=== PATIENT | male | born 1960 | race Two or more races ===

== ENCOUNTER 2020-02-28 09:00 | Outpatient (REF) | payer BC, SELFPAY | END 2020-02-28 09:01 | disposition home or self-care (01) | LOC: HO.LAB 09:00 | PROVIDERS: PCP Internal Medicine; Visit Provider Internal Medicine | DX: Z20.828 Contact with and (suspected) exposure to other viral communicable diseases (principal) | CPT/HCPCS: 87635 ==

== ENCOUNTER → 2020-03-06 10:07 | Outpatient (BNVA) | payer BC, SELFPAY | PROVIDERS: PCP Internal Medicine; Referring Provider Internal Medicine; Visit Provider Surgery | DX: Z76.89 Persons encountering health services in other specified circumstances (principal) ==

== ENCOUNTER 2020-03-15 11:08 | Outpatient (REF) | payer BC, SELFPAY | END 2020-03-15 11:09 | disposition home or self-care (01) | LOC: HO.LAB 11:08 | PROVIDERS: Visit Provider Internal Medicine | DX: Z20.828 Contact with and (suspected) exposure to other viral communicable diseases (principal) | CPT/HCPCS: U0003 ==

== ENCOUNTER 2020-03-15 11:48 | Day surgery (SDC) | payer BC, SELFPAY ==
--- NOTE | 2020-03-14 09:16 | P.CONAN_ITS ---
HPI - Anesthesia Eval Consult details Narrative: 59yo M for mitchell antonio FORMERLY [facility], [facility] Past Medical History Medical History Cholelithiasis GERD (gastroesophageal reflux disease) Hiatal hernia Hypercholesterolemia Impaired glucose tolerance Pulmonary nodule Vitamin B12 deficiency Family History Family History Father Diabetes Acute CVA (cerebrovascular accident) Stroke Mother Diabetes Hypertension Maternal Grandfather Lung cancer Maternal Grandmother Lung cancer Brother Diabetes Surgical History Surgical History No pertinent past surgical history Social History Social History Alcohol intake: never Smoking Status: Never smoker Meds Allergies Allergy/AdvReac Type Severity Reaction Status Date / Time No Known Allergies Allergy Verified 03/06/20 10:15 Home Medications Medication Instructions Recorded Confirmed Type folic acid 1 mg tablet 1 mg PO DAILY 03/04/20 History sildenafil 50 mg tablet 50 mg PO DAILY PRN 03/04/20 History Exam Exam Date and Time: March 14, 2020 0916 Assessment and Plan Assessment Anesthesia Assessment: Chart Reviewed
[2020-03-14 11:27] VITALS: BMI 28.7
[2020-03-15] VITALS (14 sets, daily range): BP systolic 100–136; BP diastolic 67–83; PULSE 61–96; RESP 10–18; TEMP 36.2–36.3; O2SAT 92–99
[2020-03-15] MEDS: Acetaminophen 325 MG TABLET 650 MG PO (12:17)
[2020-03-15] MEDS: Lactated Ringers 1,000 ML 100 ML IVCONT (12:19)
--- NOTE | 2020-03-15 12:19 | MHC.SHP ---
Pre-Procedural Eval Section B Chief Complaint: Cholelithiasis Allergies: Allergies Allergy/AdvReac Type Severity Reaction Status Date / Time No Known Allergies Allergy Verified 03/06/20 10:15 Plan Patient has been examined and remains a candidate for the planned procedure
--- NOTE | 2020-03-15 12:24 | P.CONAN_ITS ---
FORMERLY [facility] Past Medical History Medical History Cholelithiasis GERD (gastroesophageal reflux disease) Hiatal hernia Hypercholesterolemia Impaired glucose tolerance Pulmonary nodule Vitamin B12 deficiency Family History Family History Father Diabetes Acute CVA (cerebrovascular accident) Stroke Mother Diabetes Hypertension Maternal Grandfather Lung cancer Maternal Grandmother Lung cancer Brother Diabetes Surgical History Surgical History No pertinent past surgical history Social History Social History Alcohol intake: never Smoking Status: Never smoker Second Hand Smoke Exposure: No Use of substances other than those prescribed or required for medical reasons: No Advance Directives: No Advance Directives Information Provided: Yes Advance Directives on File: No Meds Allergies Allergy/AdvReac Type Severity Reaction Status Date / Time No Known Allergies Allergy Verified 03/06/20 10:15 Home Medications Medication Instructions Recorded Confirmed Type folic acid 1 mg tablet 1 mg PO DAILY 03/04/20 History sildenafil 50 mg tablet 50 mg PO DAILY PRN 03/04/20 History Exam Exam Date and Time: March 15, 2020 1224 Height,Weight and Vital Signs: Height 5 ft 8 in Weight 85.729 kg Last Vital Signs Temp 97.2 F 03/15/20 12:05 Pulse 66 03/15/20 12:05 Resp 18 03/15/20 12:05 BP 136/80 03/15/20 12:05 Pulse Ox 99 03/15/20 12:05
--- NOTE | 2020-03-15 14:27 | P.BOP_ITS ---
Brief Operative Note Date of procedure: 03/15/20 Pre-op diagnosis: gallstones Post-op diagnosis: same (chronic cholecystitis) Procedure: laparoscopic cholecystectomy Implants: None Surgeon: Olga Tee PA-C Anesthesia: GETA Type Disk Quality Control Supervisor: Olga Tee Estimated blood loss (mL): 20 Pathology: other (gallbladder) Condition: stable Disposition: PACU
[2020-03-15] MEDS: fentaNYL citrate/PF 100 MCG/2 ML VIAL 25 MCG IVPUSH ×3 (14:56→15:13)
[2020-03-15] MEDS: Ketorolac Tromethamine 15 MG/ML VIAL IVPUSH (15:08)
[2020-03-15] MEDS: oxyCODONE HCl Immed Release 5 MG TABLET PO (15:17)
--- NOTE | 2020-03-15 16:06 | PC.NURSE ---
ASSISTING PATIENT TO DRESS AT BEDSIDE. REPORTS FEELING DIZZY. RETURNED BACK TO STRETCHER. TAKING ADDITIONAL PO FLUIDS AND IVF PLACED.
--- NOTE | 2020-03-15 18:22 | OP_ITS ---
SURGEON: Dick Medina MD INDICATIONS: The patient is a 59-year-old male, who was referred to me for right upper quadrant pain with note of multiple gallstones on the CAT scan. He understood the technique of the procedure. He was aware of the risks, benefits, and alternatives. PREOPERATIVE DIAGNOSIS: Symptomatic gallstones. POSTOPERATIVE DIAGNOSIS: PROCEDURE PERFORMED: Laparoscopic cholecystectomy. ESTIMATED BLOOD LOSS: COMPLICATIONS: ANESTHESIA: ASSISTANTS: Olga Tee PA-C. SPECIMENS: POSTOPERATIVE DIAGNOSES: Symptomatic gallstones with chronic cholecystitis. DESCRIPTION OF PROCEDURE: He was brought to the operating room and placed in supine position under general anesthesia via endotracheal tube. The abdomen was prepped and draped in usual sterile fashion. A surgical time-out was done. The patient received Cefotan 2 g IV preoperatively. A short supraumbilical incision was made in the skin using blade #15, it was carried down to full-thickness skin and subcutaneous fat down to the fascia. The fascia was incised. The peritoneum was entered. Through this incision, a Lazarus port was introduced. Pneumoperitoneum was introduced to a pressure of 15 mmHg. From here on, the rest of procedure was done under vision with the 10 mm flat scope. With laparoscopic visualization, we proceeded to insert a 5/12 mm port in the epigastric area below the subcostal margin. A 5 mm port was introduced through a small incision below the subcostal margin along the anterior axillary line and midclavicular line. Graspers were placed through these working ports. The patient was placed in head-up and [id number] position. The gallbladder was seen and there was note of omentum that was adherent to its anterior wall. We were able to however apply a grasper at the fundus and this was used to retract the gallbladder cephalad. By doing so, we were able to do counter-traction to release the adherent omentum off the anterior wall. We gently dissected it off the wall of the gallbladder using the [place] dissector until we were able to expose the anterior wall. This allowed us to retract the gallbladder more cephalad. The gallbladder was noted to be packed with stones and we had difficulty applying a grasper. Eventually, I was able to apply grasper towards the pouch and this retracted the gallbladder laterally. At this point, therefore, we were retracting the gallbladder in lateral and cephalad fashion and putting the area of the cystic duct on stretch. There was note of significant fibrous tissue surrounding the neck of the gallbladder, so we had to carefully tease this of using the [place] dissector. This part of the procedure took a long period of time because of all the adherent fibrous tissue. Furthermore, the neck of the gallbladder appeared to be packed with stones as well, so retraction was little difficult and we had to reapply the grasper periodically. Eventually, by pushing the stones from the neck toward the fundus away from the neck, we were able to see the neck clearly. This was tapering and I proceeded to carefully use the [place] dissector to divide around this. There was note of more fibrous tissue distally at the area of the cystic duct, so I did not want to proceed more distal to this because of poor visualization in regard to the structures here. We continued to do dissection with the [place] dissector to go around the very distal neck. This seemed to be thin enough to allow placement of the wide cesario on the tapering portion of the neck.. With our dissection, we were able to achieve a critical view of hepatocystic triangle. The cystic artery was also noted. We used large clips and this was applied on the very distal neck of the gallbladder. Two clips were applied distally. The gallbladder was therefore completely transected from the very distal neck using Endo scissors. We retracted the gallbladder away from the liver bed. We applied clips on the cystic artery and 2 clips applied distally. The cystic artery was completely transected with Endo scissors as well. With traction in the gallbladder on the liver bed, we proceeded to gently and bluntly dissect across the rest of the hilum until we reached the interface. By doing so, we had the clip on the gallbladder had come off, so there was note of some stones that had spilled out as the gallbladder was packed with stones. We proceeded to carefully retrieved this with grasper, so this part of the procedure took a while as well. Then, we proceeded to dissect across the interface of the gallbladder wall and the liver bed using combination of blunt dissection and tip of the spatula as well as electrocautery itself to separate the gallbladder wall. We continued with the dissection. Planes were little difficult because of chronic cholecystitis. There was note of fibrous tissue between and at one point, we had a tear of the gallbladder wall near the fundus, so some more stones were spilled out. Eventually, we were able to separate the gallbladder completely and this was retrieved through an Endobag through the umbilical incision. We had to extend the umbilical incision to allow enough room for us to retrieve the specimen as this was full of stones including large one. We re-inserted all ports and re-insufflated. I had to retrieve more of the stones that had spilled out earlier from the tear on the gallbladder wall. We also used the large bore workflow developer and suctioned to retrieve some of the finer stones. We examined the area around this gallbladder and dissection in the subhepatic space. There did not appear to be any significant residual stones that had spilled. We copiously irrigated. We had to re-observe for hemostasis. Once hemostasis was ensured, proceeded to observed all four quadrants and there were no other pathology. There were no signs of any bowel injury or any bile leak. Again, we inspected the subhepatic space. Once hemostasis was ensured, proceeded to desufflate the port sites. We removed all ports and the umbilical port was removed last. The fascia of the umbilical incision was closed with a running Dexon 0 stitch. Skin closure was achieved in all incisions using Dexon 4-0 subcuticular running sutures. Steri-Strips and dressings were applied. We infiltrated all incisions with Marcaine 0.5% for postop analgesia. The procedure was then completed. The patient tolerated procedure well. There were no complications noted. Initial and final counts of sponges and instruments were correct. Estimated blood loss about 50 mL. The patient was extubated without difficulty and transferred to recovery room with stable vital signs. MD WILIAN Gamboa/JOSE MARTIN / [id number] SUZE
== END 2020-03-15 14:45 | disposition home or self-care (01) ==
PROVIDERS: PCP Internal Medicine; Visit Provider Surgery
PROC: 0FT44ZZ Resection of Gallbladder, Percutaneous Endoscopic Approach (ICD-10-PCS; CPT 47562; principal; 2020-03-15 13:40)
DX: K80.10 Calculus of gallbladder with chronic cholecystitis without obstruction (principal); K21.9 Gastro-esophageal reflux disease without esophagitis; K44.9 Diaphragmatic hernia without obstruction or gangrene; E78.00 Pure hypercholesterolemia, unspecified; R73.02 Impaired glucose tolerance (oral); E53.8 Deficiency of other specified B group vitamins; R91.1 Solitary pulmonary nodule; Z79.899 Other long term (current) drug therapy
CPT/HCPCS: 47562; 88304; J0690; J1100; J1885; J2250; J2405; J3010

== ENCOUNTER → 2020-03-19 09:29 | Outpatient (BNVA) | payer BC, SELFPAY | PROVIDERS: PCP Internal Medicine; Visit Provider Internal Medicine Pulmonary Disease | DX: Z76.89 Persons encountering health services in other specified circumstances (principal) ==

== ENCOUNTER → 2020-04-03 08:31 | Outpatient (BNVA) | payer BC, SELFPAY | PROVIDERS: PCP Internal Medicine; Referring Provider Internal Medicine; Visit Provider Surgery | DX: Z76.89 Persons encountering health services in other specified circumstances (principal) ==

== ENCOUNTER 2020-04-15 08:50 | Outpatient (REF) | payer BC, SELFPAY | END 2020-04-15 08:51 | disposition home or self-care (01) | LOC: HO.LAB 08:50 | PROVIDERS: Visit Provider Internal Medicine | DX: Z20.828 Contact with and (suspected) exposure to other viral communicable diseases (principal) | CPT/HCPCS: C9803; U0003 ==

== ENCOUNTER → 2020-04-15 09:16 | Outpatient (REF) | payer BC, SELFPAY ==
[2020-04-15 11:10] LABS: Cholesterol 178 mg/dL; HDL Cholesterol 53 mg/dL; LDL Cholesterol Calculated 111 mg/dl; Triglycerides 73 mg/dL
== END ==
LOC: HO.SL 09:16
PROVIDERS: Absent Provider Internal Medicine; PCP Internal Medicine; Visit Provider Internal Medicine Pulmonary Disease
DX: E78.00 Pure hypercholesterolemia, unspecified (principal); K80.20 Calculus of gallbladder without cholecystitis without obstruction; G47.30 Sleep apnea, unspecified
CPT/HCPCS: 80061; 95806

== ENCOUNTER → 2020-04-24 10:21 | Outpatient (BNVA) | payer BC, SELFPAY | PROVIDERS: PCP Internal Medicine; Referring Provider Internal Medicine; Visit Provider Internal Medicine Pulmonary Disease | DX: Z76.89 Persons encountering health services in other specified circumstances (principal) ==

== ENCOUNTER 2020-06-12 09:40 | Outpatient (REF) | payer BC, SELFPAY ==
--- NOTE | 2020-06-12 09:44 | US_ITS ---
EXAMINATION: US EXTRACRANIAL CAROTID DUPLEX, BILATERAL CLINICAL INFORMATION: Central retinal occlusion, unspecified eye COMPARISON: None TECHNIQUE: Real-time ultrasound and Doppler techniques (integrating B-mode 2-D vascular images, Doppler spectral analysis and color-flow Doppler imaging) were utilized to interrogate the extracranial carotid arteries, the vertebral arteries and proximal subclavian arteries bilaterally. The degree of stenosis is determined by criteria similar to NASCET. FINDINGS: Right Side: 1. There is no visualized atherosclerotic plaque seen in the bifurcation/proximal ICA region. 2. The common carotid artery PSV proximally is 105 cm/s and distally 84.4 cm/s. 3. The proximal internal carotid artery velocities are 70.4 cm/s systolic and 24.6 cm/s diastolic. 4. The proximal external carotid artery PSV is 90.9 cm/s. 5. The vertebral artery shows antegrade flow. 6. The subclavian artery waveforms are normal. Left Side: 1. There is minimal atherosclerotic plaque seen in the bifurcation/proximal ICA region. 2. The common carotid artery PSV proximally is 123 cm/s and distally 83.3 cm/s. 3. The proximal internal carotid artery velocities are 55.6 cm/s systolic and 22.4 cm/s diastolic. 4. The proximal external carotid artery PSV is 86.2 cm/s. 5. The vertebral artery shows antegrade flow. 6. The subclavian artery waveforms are normal. US/US carotid duplex BI IMPRESSION: 1. RIGHT: Normal right internal carotid artery without atherosclerotic plaque or hemodynamically significant stenosis. 2. LEFT: Minimal, non-hemodynamically significant stenosis of the proximal left internal carotid artery corresponding to a 0-49% stenosis by velocity criteria.
== END 2020-06-12 09:41 | disposition home or self-care (01) ==
LOC: HO.US 09:40
PROVIDERS: PCP Internal Medicine; Visit Provider Internal Medicine
DX: H34.8192 Central retinal vein occlusion, unspecified eye, stable (principal)
CPT/HCPCS: 93880

== ENCOUNTER → 2020-08-05 11:42 | Outpatient (REF) | payer BC, SELFPAY ==
--- NOTE | 2020-08-05 11:47 | ECG_ITS ---
Test Reason : K21.9 Blood Pressure : / mmHG Vent. 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
== END ==
LOC: HO.CARD 11:42
PROVIDERS: PCP Internal Medicine; Visit Provider Internal Medicine
DX: K21.9 Gastro-esophageal reflux disease without esophagitis (principal)
CPT/HCPCS: 93005

== ENCOUNTER 2020-08-14 08:49 | Outpatient (REF) | payer BC, SELFPAY ==
[2020-08-14 11:38] LABS: SARS COV2 PCR INHOUSE NEGATIVE (Negative)
== END 2020-08-14 08:50 | disposition home or self-care (01) ==
LOC: HO.LAB 08:49
PROVIDERS: Visit Provider Internal Medicine
DX: Z20.822 Contact with and (suspected) exposure to COVID-19 (principal)
CPT/HCPCS: C9803; U0003

== ENCOUNTER → 2020-10-23 11:17 | Outpatient (BNVA) | payer BC, SELFPAY | PROVIDERS: PCP Internal Medicine; Visit Provider Internal Medicine Pulmonary Disease ==

== ENCOUNTER 2020-11-01 14:03 | Outpatient (REF) | payer BC, SELFPAY ==
[2020-11-01 15:25] LABS: Baso%MD 0.5 %; Hematocrit 44.9 % (42-52); Hemoglobin 14.7 g/dl (14.0-18.0); IG%MD 0.4 %; Lymph%MD 25.7 %; Mean Corpuscular HGB Conc 32.7 g/dl (31.0-36.0); Mean Corpuscular Hemoglobin 27.4 pg (27.0-33.0); Mean Corpuscular Volume 83.8 fL (80-98); Mean Platelet Volume 9.6 fL (9.4-12.4); Mono%MD 8.6 %; Neut%MD 60.8 %; Platelet Count 300 X10*3/uL (160-400); Red Blood Count 5.36 X10*6/uL (4.60-5.80); Red Cell Distribution Width 13.2 % (11.0-16.0); White Blood Count 5.7 X10*3/uL (4.8-10.8)
[2020-11-01 15:44] LABS: C Reactive Protein 0.19 mg/dL (< or = 0.50); Rheumatoid Factor < 15.0 IU/mL (<15.0)
[2020-11-01 16:13] LABS: Atypical Lymph Absolute Manual 0.1 x10*3/uL; Atypical Lymphs Percent Manual 1 % (0-6); Band Neutrophils Percent 4 % (3-5); Basophils Abs Manual 0.2 X10*3/uL (0.0-0.3); Basophils Percent Manual 3 % (0-1); Eosinophils Absolute Manual 0.1 X10*3/UL (0.0-0.8); Eosinophils Percent Manual 2 % (0-4); Lymphocytes Absolute Manual 1.5 X10*3/uL (0.6-4.8); Lymphocytes Percent Manual 26 % (20-40); Metamyelocytes Absolute 0.1 X10*3/uL; Metamyelocytes Percent 2 %; Monocytes Absolute Manual 0.3 X10*3/uL (0.0-1.2); Monocytes Percent Manual 6 % (2-11); Neutrophils Absolute Manual 3.4 X10*3/uL (2.2-7.9); Neutrophils Percent Manual 56 % (45-73); RBC Morphology NORMAL
[2020-11-01 16:14] LABS: Burr Cells 1+ (0-2) /OIF; Platelet Estimate NORMAL (NORMAL); Platelet Morphology Comment NORMAL
[2020-11-01 16:16] LABS: Erythrocyte Sedimentation Rate 8 MM/HR (0-15)
[2020-11-02 13:41] LABS: Anti Nuclear Antibody Screen NEGATIVE (NEGATIVE)
[2020-11-02 14:07] LABS: Cardiolipin IgG Ab <2.0 GPL-U/mL; Cardiolipin IgM Ab <2.0 MPL-U/mL; Myeloperoxidase Antibody <1.0 AI; Proteinase 3 PR3 Antibodies <1.0 AI
[2020-11-02 14:57] LABS: Cyclic Citrullinated Peptide 21 UNITS
[2020-11-02 17:23] LABS: Beta-2 Microglobulin, Serum 1.47 mg/L (< OR = 2.51)
[2020-11-04 14:42] LABS: PTT (LAC) Screen 30 sec (< OR = 40)
== END 2020-11-01 14:04 | disposition home or self-care (01) ==
LOC: HO.LAB 14:03
PROVIDERS: PCP Internal Medicine; Visit Provider Student in an Organized Health Care Education/Training Program
DX: H34.8192 Central retinal vein occlusion, unspecified eye, stable (principal); M79.641 Pain in right hand; M79.642 Pain in left hand; Z87.891 Personal history of nicotine dependence
CPT/HCPCS: 36415; 82232; 85007; 85027; 85597; 85613; 85652; 85730; 86021; 86038; 86039; 86140; 86147; 86200; 86431

== ENCOUNTER 2020-11-20 09:04 | Outpatient (REF) | payer SELFPAY ==
--- NOTE | ~2020-11-20 | XR_ITS ---
EXAMINATION: XR BILATERAL HANDS CLINICAL INFORMATION: Pain. COMPARISON: 07/21/2018 TECHNIQUE: 3 views of each hand. FINDINGS: Left Hand: 3 views of the left hand do not demonstrate any evidence of acute fracture or dislocation. No significant soft tissue swelling is seen. No destructive bony lesions. There is a 3 mm bony density seen about the dorsum of the wrist which may be related to previous injury. No periarticular or para-articular erosive change. Right Hand: 3 views of the right hand do not demonstrate any evidence of acute fracture or dislocation. Joint space is maintained. No significant soft tissue swelling. No periarticular or para-articular erosive change. XR/XR hand RT min 3V IMPRESSION: No significant right or left hand abnormality appreciated.
--- NOTE | ~2020-11-20 | XR_ITS ---
EXAMINATION: XR BILATERAL HANDS CLINICAL INFORMATION: Pain. COMPARISON: 07/21/2018 TECHNIQUE: 3 views of each hand. FINDINGS: Left Hand: 3 views of the left hand do not demonstrate any evidence of acute fracture or dislocation. No significant soft tissue swelling is seen. No destructive bony lesions. There is a 3 mm bony density seen about the dorsum of the wrist which may be related to previous injury. No periarticular or para-articular erosive change. Right Hand: 3 views of the right hand do not demonstrate any evidence of acute fracture or dislocation. Joint space is maintained. No significant soft tissue swelling. No periarticular or para-articular erosive change. XR/XR hand LT min 3V IMPRESSION: No significant right or left hand abnormality appreciated.
== END 2020-11-20 09:05 | disposition home or self-care (01) ==
LOC: HO.XRAY 09:04
PROVIDERS: PCP Internal Medicine; Visit Provider Student in an Organized Health Care Education/Training Program
DX: H34.8192 Central retinal vein occlusion, unspecified eye, stable (principal)
CPT/HCPCS: 73130

== ENCOUNTER → 2020-12-20 12:40 | Outpatient (REF) | payer OTHER, SELFPAY ==
--- NOTE | 2020-12-20 12:43 | CA_ITS ---
Transthoracic Echocardiogram Patient (Last, First, Middle): Ravindra Varghese, Gender: Male Date of : 1960 Age: 60 Procedure Date: 12/20/2020 Procedure Type: Transthoracic Echocardiogram Location: OP Height: 172.72 cm Weight: 86.18 kg BSA: 2.00 m2 Heart Rate: bpm BP: 130 / 60 mmHg Pipe Testing Technician: NADER Referring MD: Shahid Longoria MD Symptoms: H34.8192 - Central retinal vein occlusion, unspecified ey... Study Quality: Good Conclusions: - Normal left ventricular size, thickness, systolic function, and wall motion. - Normal right ventricular cavity size and systolic function. Findings Left Ventricle Normal left ventricular size, thickness, systolic function, and wall motion. The visually estimated ejection fraction is between 55-60%. Diastolic function is normal for age. Right Ventricle Normal right ventricular cavity size and systolic function. Atria Both atria are normal in size. Aortic Valve Normal aortic valve structure and function. There is no aortic valve stenosis. There is no aortic valve regurgitation. Mitral Valve Normal mitral valve structure and function. There is no mitral valve regurgitation. There is no mitral valve stenosis. Pulmonic Valve Normal pulmonic valve structure and function. There is trace pulmonic valve regurgitation. Tricuspid Valve Normal tricuspid valve structure and function. There is trace tricuspid valve regurgitation. Normal right atrial pressure. There is no evidence of pulmonary hypertension. Great Vessels All visible segments of the aorta are normal in size. The visualized portions of the pulmonary artery and branches are normal. Venous The inferior vena cava is normal in size and collapses greater than 50% with inspiration. Pericardium/Pleural There is no evidence of pericardial effusion. Prior Study Comparison No prior study available for comparison. Measurements 2D Linear Measurements IVSd: 0.96 0.6-0.9/0.6-1.0 cm LVIDd: 4.66 3.9-5.3/4.2-5.9 cm LVIDd Index: 2.33 2.4-3.2/2.2-3.1 cm/m2 LVIDs: 2.77 2.0-3.6 cm LVPWd: 0.99 0.7-1.1 cm Ao Root: 3.70 2.1-3.5 cm LA Diam: 3.60 2.7-3.8/3.0-4.0 cm LAIDs Index: 1.80 1.5-2.3 cm/m2 LV Mass: 194.43 67-162/88-224 g LV Mass Index: 97.22 43-95/49-115 g/m2 LVOT Diam: 2.10 3.0+(-)1.3 cm 2D Systolic Function EF 4C: 56.00 >55% EF 2C: 66.00 >55% EF BiP: 59.70 >55% Mitral Valve MV Pk E: 0.75 MV PK A: 0.92 MV Decel Time: 298.00 E/A: 0.80 E'Lateral: 9.03 E'Medial: 7.83 E/E' Med: 9.50 E/E' Lat: 8.30 PHT: 87.00 MVA PHT: 2.53 Decel Josephine: 2.50 Aortic Valve AoV Pk Michael: 1.40 AoV Mn Michael: 1.00 AoV VTI: 0.30 AoV Pk Grad: 8.00 Aov Mn Grad: 4.00 CRISTOBAL Cont.VTI: 2.78 LVOT LVOT Pk Michael: 1.05 LVOT Mn Michael: 0.63 LVOT VTI: 0.24 LVOT Pk Grad: 4.00 LVOT Mn Grad: 2.00 LVOT Diam: 2.10 LVOT Area: 3.46 Diastolic Function MV Pk E: 0.75 MV Pk A: 0.92 E/A: 0.80 E'Medial: 7.83 E/E' Med: 9.50 E' Laterial: 9.03 E/E' Lat: 8.30 Right Ventricle TAPSE (mm): 2.40 Tricuspid Valve TR Pk Michael: 2.24 TR Pk Grad: 20.00 RA Press: 3.00 RVSP: 23.00 Great Vessels Aorta Ao Root-2D: 3.70 2.0-3.7 cm Ao Asc: 3.20 2.1-3.4 cm Ao Arch: 2.80 Updated in Other Vendor System with Status of Final Lon Recio MD electronically signed on 12/22/2020 4:35:35 PM with status of Final
== END ==
LOC: HO.CARD 12:40
PROVIDERS: PCP Internal Medicine; Visit Provider Internal Medicine
DX: H34.8192 Central retinal vein occlusion, unspecified eye, stable (principal)
CPT/HCPCS: 93306

== ENCOUNTER 2021-03-31 05:58 | Outpatient (REF) | payer OTHER, SELFPAY ==
[2021-03-31 06:06] LABS: MANUAL DIFF FLAG NO
[2021-03-31 07:32] LABS: Estimated Average Glucose 123 mg/dL; Hemoglobin A1c % 5.9 %
[2021-03-31 07:36] LABS: Basophils Percent Auto 0.6 % (0-2); Eosinophils Absolute Auto 0.2 X10*3/uL (0.0-0.4); Eosinophils Percent Auto 3.4 % (0-4); Hematocrit 47.4 % (42.0-52.0); Hemoglobin 15.2 g/dl (14.0-18.0); Imm Gran Abs Auto 0.02 X10*3/uL (0.00-0.03); Imm Gran Pct Auto 0.4 % (0.0-0.4); Lymphocytes Absolute Auto 1.4 X10*3/uL (1.2-4.9); Mean Corpuscular HGB Conc 32.1 g/dl (31.0-36.0); Mean Corpuscular Hemoglobin 27.1 pg (27.0-33.0); Mean Corpuscular Volume 84.5 fL (80.0-98.0); Mean Platelet Volume 10.6 fL (9.4-12.4); Monocytes Absolute Auto 0.4 X10*3/uL (0.1-1.2); Monocytes Percent Auto 8.7 % (2-11); Neutrophils Absolute Auto 2.9 x10*3/uL (2.0-8.3); Neutrophils Percent Auto 57.9 % (45-73); Platelet Count 287 X10*3/uL (160-400); Red Blood Count 5.61 X10*6/uL (4.60-5.80); Red Cell Distribution Width 13.4 % (11.0-16.0)
[2021-03-31 08:03] LABS: Alanine Aminotransferase 23 U/L (0-40); Albumin Level 4.5 g/dL (3.5-5.0); Alkaline Phosphatase 71 U/L (39-117); Anion Gap 10 (12-20); Aspartate Amino Transferase 18 U/L (5-37); Bilirubin Total 0.7 mg/dL (0.0-1.0); Blood Urea Nitrogen 16 mg/dL (9-16); Calcium 9.7 mg/dL (8.4-10.2); Carbon Dioxide 30 mmol/L (22-29); Chloride 105 mmol/L (96-108); Cholesterol 168 mg/dL; Estimated Glomerular Filt Rate > 60; Glucose Random 96 mg/dL (60-115); HDL Cholesterol 54 mg/dL; LDL Cholesterol Calculated 103 mg/dl; Potassium 5.4 mmol/L (3.3-5.1); Sodium 140 mmol/L (135-145); Total Protein 7.2 g/dL (6.5-8.0); Triglycerides 58 mg/dL
[2021-03-31 08:24] LABS: Free T4 (Free Thyroxine) 0.93 ng/dL (0.71-1.85); Prostate Specific Antigen Scr 0.58 ng/mL (<0.05-4.0); Thyroid Stimulating Hormone 1.21 uIU/mL (0.32-4.0)
[2021-03-31 10:00] LABS: Vitamin B12 190 pg/mL (200-900)
== END 2021-03-31 05:59 | disposition home or self-care (01) ==
LOC: HO.LAB 05:58
PROVIDERS: Student in an Organized Health Care Education/Training Program; PCP Internal Medicine; Visit Provider Internal Medicine
DX: Z12.5 Encounter for screening for malignant neoplasm of prostate (principal); H34.8192 Central retinal vein occlusion, unspecified eye, stable; R73.02 Impaired glucose tolerance (oral); E78.00 Pure hypercholesterolemia, unspecified; E53.8 Deficiency of other specified B group vitamins
CPT/HCPCS: 36415; 80053; 80061; 82607; 82746; 83036; 84153; 84439; 84443; 85025

== ENCOUNTER 2021-04-07 06:02 | Outpatient (REF) | payer OTHER, SELFPAY ==
[2021-04-07 07:41] LABS: Anion Gap 11 (12-20); Blood Urea Nitrogen 18 mg/dL (9-16); Calcium 9.2 mg/dL (8.4-10.2); Carbon Dioxide 27 mmol/L (22-29); Chloride 107 mmol/L (96-108); Estimated Glomerular Filt Rate > 60; Glucose Random 95 mg/dL (60-115); Potassium 4.5 mmol/L (3.3-5.1); Sodium 140 mmol/L (135-145)
== END 2021-04-07 06:03 | disposition home or self-care (01) ==
LOC: HO.LAB 06:02
PROVIDERS: PCP Internal Medicine; Visit Provider Internal Medicine
DX: E87.5 Hyperkalemia (principal)
CPT/HCPCS: 36415; 80048

== ENCOUNTER 2021-06-05 09:16 | Outpatient (REF) | payer OTHER, SELFPAY ==
--- NOTE | 2021-06-05 09:20 | EMG_ITS ---
Left median and ulnar motor and sensory studies were performed. Left radial sensory study was performed and paraspinal muscles were tested. IMPRESSION: [id number] left median neuropathy across carpal tunnel. MD DESIREE Le/JOSE MARTIN / [id number]
== END 2021-06-05 09:17 | disposition home or self-care (01) ==
LOC: HO.NEURO 09:16
PROVIDERS: Visit Provider Internal Medicine
DX: R20.0 Anesthesia of skin (principal)
CPT/HCPCS: 95886; 95909

== ENCOUNTER 2022-02-02 08:43 | Outpatient (REF) | payer OTHER, SELFPAY ==
--- NOTE | ~2022-02-02 | CT_ITS ---
EXAMINATION: CT CHEST WITHOUT CONTRAST CLINICAL INFORMATION: Follow-up pulmonary nodule COMPARISON: Previous chest CT January 2019 TECHNIQUE: Multidetector volumetric CT imaging of the chest was done. Axial MIP volume rendering provided. Sagittal and coronal reformatted images were obtained. This CT examination was performed using dose optimization techniques as appropriate, variously including the following: *Automated exposure control *Adjustment of mA and/or kV according to patient size (this includes techniques or standardized protocols for targeted exams where dose is matched to indication/reason for exam; i.e. extremities or head) *Use of iterative reconstruction technique DLP: 181 mGy-cm FINDINGS: LUNGS: The bilateral small pulmonary nodules are stable. Largest pulmonary nodule is a 3 x 7 mm peripheral or subpleural right lower lobe nodule adjacent to the major fissure axial image 289 series 7 and 3 x 6 mm right lower lobe nodule axial image 307 series 7. No new pulmonary nodule. MEDIASTINUM: The mediastinum is normal. CORONARY ARTERY CALCIFICATION: None visualized on this study. PLEURA: There is no pleural effusion. No pleural mass or thickening. AXILLA: No lymphadenopathy. UPPER ABDOMEN: The gallbladder has been removed. OSSEOUS STRUCTURES: Unremarkable. CT/CT chest wo IV con IMPRESSION: Stable pulmonary nodules from January 2019. Fleischner guidelines were followed.
== END 2022-02-02 08:44 | disposition home or self-care (01) ==
LOC: HO.CT 08:43
PROVIDERS: PCP Internal Medicine; Visit Provider Internal Medicine
DX: R91.1 Solitary pulmonary nodule (principal)
CPT/HCPCS: 71250

== ENCOUNTER 2022-02-26 12:08 | Outpatient (REF) | payer OTHER, SELFPAY ==
--- NOTE | ~2022-02-26 | US_ITS ---
EXAMINATION: US PELVIS LIMITED (BLADDER) CLINICAL INFORMATION: Unspecified urinary incontinence. COMPARISON: CT abdomen and pelvis 02/07/2020. X-ray abdomen 12/25/2016. TECHNIQUE: Real-time imaging of the bladder. FINDINGS: BLADDER: There is mild bladder wall thickening. No stone or mass. Bilateral ureteral jets are demonstrated. Prevoid bladder volume is 442 mL. Postvoid bladder volume is 125.4 mL. Prostate volume 15.9 mL. US/US bladder IMPRESSION: Slightly thickened bladder wall. 125 mL post void bladder residual.
== END 2022-02-26 12:09 | disposition home or self-care (01) ==
LOC: HO.US 12:08
PROVIDERS: Visit Provider Internal Medicine
DX: R32 Unspecified urinary incontinence (principal)
CPT/HCPCS: 76857

== ENCOUNTER → 2022-04-17 09:42 | Outpatient (BNVA) | payer OTHER, SELFPAY | PROVIDERS: PCP Internal Medicine; Visit Provider Urology | DX: R33.9 Retention of urine, unspecified (principal); N40.1 Benign prostatic hyperplasia with lower urinary tract symptoms; R31.29 Other microscopic hematuria; R39.198 Other difficulties with micturition | CPT/HCPCS: 51798 ==

== ENCOUNTER 2022-05-15 04:46 | Emergency (ER) | payer OTHER, SELFPAY ==
--- NOTE | ~2022-05-15 | XR_ITS ---
EXAMINATION: XR CHEST CLINICAL INFORMATION: Right lateral chest wall pain COMPARISON: Previous chest x-ray December [address] January 2022 TECHNIQUE: 2 views of the chest were obtained. FINDINGS: The cardiac and mediastinal contours are normal. There are bilateral symmetric nodules projecting over the lower lungs on the PA view suggestive of nipple shadows. The lungs are otherwise clear. No pleural effusion or pneumothorax. Normal bony structures. XR/XR chest 2V IMPRESSION: No evidence for acute disease in the chest.
[2022-05-15 04:52] VITALS: BP 134/85; PULSE 70; RESP 20; TEMP 36.6; O2SAT 97; BMI 28.1
--- NOTE | 2022-05-15 04:54 | ECG_ITS ---
Test Reason : CHEST PAIN Blood Pressure : / mmHG Vent. Rate : 060 BPM Atrial Rate : 060 BPM P-R Int : 158 ms QRS Dur : 080 ms QT Int : 394 ms P-R-T Axes : 047 000 046 degrees QTc Int : 394 ms Normal sinus rhythm Cannot rule out Inferior infarct (cited on or before 20-JUN-2013) Abnormal ECG When compared with ECG of 05-AUG-2020 11:53, No significant change was found Referred By: Generic ED Physician Electronically Signed By:SOHAM NAJERA MD
[2022-05-15 05:05] LABS: Basophils Absolute Auto 0.1 X10*3/uL (0.0-0.2); Basophils Percent Auto 0.9 % (0-2); Eosinophils Absolute Auto 0.3 X10*3/uL (0.0-0.4); Eosinophils Percent Auto 4.9 % (0-4); Hematocrit 44.5 % (42.0-52.0); Hemoglobin 14.5 g/dl (14.0-18.0); Imm Gran Abs Auto 0.01 X10*3/uL (0.00-0.03); Imm Gran Pct Auto 0.2 % (0.0-0.4); Lymphocytes Absolute Auto 1.7 X10*3/uL (1.2-4.9); Lymphocytes Percent Auto 31.3 % (20-40); MANUAL DIFF FLAG NO; Mean Corpuscular HGB Conc 32.6 g/dl (31.0-36.0); Mean Corpuscular Hemoglobin 27.1 pg (27.0-33.0); Mean Platelet Volume 9.6 fL (9.4-12.4); Monocytes Absolute Auto 0.5 X10*3/uL (0.1-1.2); Monocytes Percent Auto 9.4 % (2-11); Neutrophils Percent Auto 53.3 % (45-73); Platelet Count 252 X10*3/uL (160-400); Red Blood Count 5.36 X10*6/uL (4.60-5.80); Red Cell Distribution Width 13.3 % (11.0-16.0); White Blood Count 5.6 X10*3/uL (4.8-10.8)
[2022-05-15 05:20] LABS: Anion Gap 10 (12-20); Blood Urea Nitrogen 22 mg/dL (9-16); Calcium 9.1 mg/dL (8.4-10.2); Carbon Dioxide 23 mmol/L (22-29); Chloride 108 mmol/L (96-108); Creatinine Clr Calc Pharmacy 67.5; Estimated Glomerular Filt Rate > 60; Glucose Random 114 mg/dL (60-115); Potassium 4.1 mmol/L (3.3-5.1); Sodium 137 mmol/L (135-145)
[2022-05-15 05:44] LABS: Troponin-I High Sensitivity < 3.5 ng/L (<3.5-35.0)
[2022-05-15 06:04] VITALS: BP 135/86; PULSE 66; RESP 14; TEMP 36.8; O2SAT 98
--- NOTE | 2022-05-15 06:38 | ED.CHESTPAIN ---
HPI - Chest Pain General Chief Complaint: Chest Pain Stated Complaint: Chest pain Time Seen by Provider: 05/15/22 06:28 Source: patient Mode of arrival: ambulatory History of Present Illness HPI narrative: 61-year-old male with presentation for, according to the triage note is says left-sided chest pain, but on my interview patient reports right-sided chest pain and specifically points to the right lateral chest wall that has reproducible chest pain on palpation and he describes it as sharp and still present and associated with movement of the right arm. He denies any associated fever, chills, cough, sore throat and denies any history of diabetes or high blood pressure. Related Data Previous Rx's Medication Instructions Recorded cyanocobalamin (vitamin B-12) 1,000 mcg PO DAILY 90 days #90 caps 04/15/21 1,000 mcg capsule sildenafil 50 mg tablet 50 mg PO DAILY PRN sexual activity 01/07/22 #10 tabs tamsulosin 0.4 mg capsule (Flomax) 0.4 mg PO BEDTIME #90 caps 03/30/22 Allergies Allergy/AdvReac Type Severity Reaction Status Date / Time No Known Allergies Allergy Verified 05/15/22 04:54 Review of Systems Review of Systems: Pertinent positives and negatives as stated in HPI. [facility] Past Medical History Source: nursing notes reviewed Medical History Bilateral hand numbness GERD (gastroesophageal reflux disease) Hiatal hernia Hypercholesterolemia Impaired glucose tolerance Pulmonary nodule Vitamin B12 deficiency Surgical History Cholelithiasis No pertinent past surgical history Family History Family History Father Diabetes Acute CVA (cerebrovascular accident) Stroke Mother Diabetes Hypertension Maternal Grandfather Lung cancer Maternal Grandmother Lung cancer Brother Diabetes Social History Social History Household Members: Spouse and Children Housing: House Alcohol intake: current Patient Tobacco Use Status: Former Tobacco user Cigarettes Per Day: 10 Years Smoked: 10 yrs stopped 1993 e-Cigarette/Vaping Use: Never Used Second Hand Smoke Exposure: No Advance Directives: Yes Advance Directives Information Provided: Yes Advance Directives on File: No service: No Current occupational status: employed Cognitive needs: No Hearing needs: No Vision needs: Yes Physical Exam Vital Signs: Vital Signs: Last Vital Signs Temp 98.2 F 05/15/22 06:04 Pulse 66 05/15/22 06:04 Resp 14 05/15/22 06:04 BP 135/86 05/15/22 06:04 Pulse Ox 98 05/15/22 06:04 O2 Del Method 05/15/22 06:04 BMI result Body Mass Index 28.1 VITAL SIGNS: Reviewed. GENERAL: Well developed, well nourished, in no acute distress. HEAD: Normocephalic/atraumatic EYES: PERRLA, EOMI EARS: Ext canals without abnormality OROPHARYNX: no oral lesions noted, posterior pharynx clear LUNGS: Normal breath sounds. No adventitious sounds or accessory muscle use. SpO2<98>; CHEST WALL: There is no obvious deformity or crepitus, but there is very specific pain that is reproducible on palpation to the right lateral chest wall, I do not palpate any masses CARDIOVASCULAR: Regular rate and rhythm without noted murmurs ABDOMEN: Soft, non-tender, non-distended with bowel sounds. MUSCULOSKELETAL: No tenderness, deformities, or effusions noted on gross inspection. EXTREMITIES: No cyanosis, clubbing or edema; RIGHT SHOULDER: There is no pain on palpation or erythema and there is full range of motion, however patient does describe pain at the right lateral chest wall with a be duction of the arm at the shoulder. Distal neurovascular is intact SKIN: Inspection of the skin reveals no rashes NEUROLOGIC: Alert and oriented x 4. Strength and sensation to light touch were grossly intact x 4. 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 [id number]: On review of all investigations hematology results are without acute findings, chemistry results does chronically stable renal function and a negative troponin. 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 He will be discharged with combination analgesics and instructions for lidocaine patch as well as follow-up with his primary care doctor. Differential Diagnosis Differential Diagnoses: The differential diagnosis associated with the presentation includes I will rule out pleurisy, pneumonia, pneumothorax, musculoskeletal but have low clinical suspicion for cardiopulmonary etiology. Lab Data MDM Lab Attestation statement: I reviewed the patient's lab results. Please see the discussion above Result Diagrams: 05/15/22 04:56 05/15/22 04:56 Labs: Lab Results 05/15/22 05/15/22 05/15/22 Range/Units 04:56 04:56 04:56 WBC 5.6 (4.8-10.8) X10*3/uL RBC 5.36 (4.60-5.80) X10*6/uL Hgb 14.5 (14.0-18.0) g/dl Hct 44.5 (42.0-52.0) % MCV 83.0 (80.0-98.0) fL MCH 27.1 (27.0-33.0) pg MCHC 32.6 (31.0-36.0) g/dl RDW 13.3 (11.0-16.0) % Plt Count 252 (160-400) X10*3/uL MPV 9.6 (9.4-12.4) fL Immature Gran % (Auto) 0.2 (0.0-0.4) % Neut % (Auto) 53.3 (45-73) % Lymph % (Auto) 31.3 (20-40) % [place] % (Auto) 9.4 (2-11) % Eos % (Auto) 4.9 H (0-4) % Baso % (Auto) 0.9 (0-2) % Lymph # (Auto) 1.7 (1.2-4.9) X10*3/uL [place] # (Auto) 0.5 (0.1-1.2) X10*3/uL Eos # (Auto) 0.3 (0.0-0.4) X10*3/uL Baso # (Auto) 0.1 (0.0-0.2) X10*3/uL Abs Immat Gran (auto) 0.01 (0.00-0.03) X10*3/uL Absolute Neuts (auto) 3.0 (2.0-8.3) x10*3/uL Absolute Nucleated RBC 0.000 (0.0-0.012) X10*3/uL Nucleated RBC % (auto) 0.0 (0.0-0.2) /100WBC Sodium 137 (135-145) mmol/L Potassium 4.1 (3.3-5.1) mmol/L Chloride 108 (96-108) mmol/L Carbon Dioxide 23 (22-29) mmol/L Anion Gap 10 L (12-20) BUN 22 H (9-16) mg/dL Creatinine 1.19 (0.5-1.4) mg/dL Estim Creat Clear Calc 67.5 Estimated GFR > 60 Random Glucose 114 (60-115) mg/dL Calcium 9.1 (8.4-10.2) mg/dL Troponin I High Sens < 3.5 (<3.5-35.0) ng/L Independent Interpretation I performed an independent interpretation of an: EKG Interpretation: Normal sinus rhythm, HR-60, no STEMI, UT/QRS/QTC are within normal limits. Radiology Impression Radiologist Impression: My interpretation is in agreement with radiology's impression of imaging study. Discharge Plan Discharge Clinical Impression: Chest wall pain, Muscle strain of anterior chest wall, Acute costochondritis Patient Disposition: Home, Self-Care Instructions: Chest Wall Pain (ED), Muscle Strain (ED), Costochondritis (ED) Additional Instructions: 1. Tylenol 1000 mg, orally, every 6 hours as needed for pain control. Do not exceed 4000 mg within 24 hours. 2. Lidocaine patch, apply to the area of maximal tenderness as directed on the outside packaging. 3. Ibuprofen 400 mg, orally with milk or food, every 6 hours as needed for pain control. You may take this medication with Tylenol for improved symptom relief. 4. I recommend that you follow-up with your primary care provider for re-evaluation and further outpatient management. Return to the ER for any worsening symptoms. Prescriptions: No Action tamsulosin [Flomax] 0.4 mg capsule 0.4 mg PO BEDTIME Qty: 90 2RF cyanocobalamin (vitamin B-12) 1,000 mcg capsule 1,000 mcg PO DAILY 90 Days Qty: 90 3RF sildenafil 50 mg tablet 50 mg PO DAILY PRN (Reason: sexual activity) Qty: 10 5RF Rx Instructions: administer 30 minutes to 4 hours before activity Referrals: Po,Shahid Harkins MD [Primary Care Provider] - Stand Alone Forms: Work/School Release
[2022-05-15 08:35] VITALS: BP 132/93; PULSE 64; RESP 13; O2SAT 99
[2022-05-15] MEDS: Acetaminophen 325 MG TABLET 975 MG PO (08:36)
[2022-05-15] MEDS: Ketorolac Tromethamine 15 MG/ML VIAL IM (08:37)
[2022-05-15] MEDS: Lidocaine 4 % Patch ADH..PATCH 1 PATCH TRANSDERMA (08:37)
== END 2022-05-15 08:53 | disposition home or self-care (01) ==
PROVIDERS: Emergency Provider Student in an Organized Health Care Education/Training Program; PCP Internal Medicine
DX: R07.89 Other chest pain (principal); M94.0 Chondrocostal junction syndrome [Tietze]; Z87.891 Personal history of nicotine dependence; Z79.899 Other long term (current) drug therapy
CPT/HCPCS: 36415; 71046; 80048; 84484; 85025; 93005; 96372; 99284; J1885

== ENCOUNTER 2022-06-02 12:22 | Outpatient (REF) | payer OTHER, SELFPAY ==
[2022-06-02 12:59] LABS: COVID-19 Test Positive (Negative); IDNOW Serial# 55D5AD1C
== END 2022-06-02 12:23 | disposition home or self-care (01) ==
LOC: HO.LAB 12:22
PROVIDERS: Visit Provider Internal Medicine
DX: Z20.822 Contact with and (suspected) exposure to COVID-19 (principal)
CPT/HCPCS: 87635; C9803

== ENCOUNTER 2022-06-08 10:38 | Outpatient (REF) | payer OTHER, SELFPAY ==
--- NOTE | ~2022-06-08 | CT_ITS ---
EXAMINATION: CT ABDOMEN AND PELVIS WITHOUT AND WITH CONTRAST CLINICAL INFORMATION: Microscopic hematuria COMPARISON: None TECHNIQUE: Multidetector volumetric imaging was performed of the abdomen and pelvis before and after the IV administration of 85 mL of Omnipaque 300 intravenous contrast. Sagittal and coronal reformatted images were obtained on the technologist's workstation. This CT examination was performed using dose optimization techniques as appropriate, variously including the following: *Automated exposure control *Adjustment of mA and/or kV according to patient size (this includes techniques or standardized protocols for targeted exams where dose is matched to indication/reason for exam; i.e. extremities or head) *Use of iterative reconstruction technique DLP: 720 mGy-cm FINDINGS: LUNG BASES: There is dependent bibasilar atelectasis. The heart size is normal. LIVER, GALLBLADDER, AND BILIARY TREE: The liver is normal in size, shape, and attenuation. No focal hepatic lesion or biliary ductal dilatation is present. The gallbladder has been surgically removed. PANCREAS: Unremarkable SPLEEN: Unremarkable ADRENAL GLANDS: Unremarkable KIDNEYS AND URETERS: There are no radiopaque calculi seen in the precontrast exam. Post contrast both kidneys are symmetrical and normal size, shape and position. There is 6 mm nonenhancing hypodensity, lower pole right kidney, and a 1.0 cm hypodensity upper pole right kidney. No enhancing renal mass seen. Excreted contrast outlines bilateral kidney pelvises and ureters without any intraluminal filling defect or narrowing. Left kidney measures 10.8 cm in length and right kidney measures 10.9 cm in length. BLADDER: There are no radiopaque bladder calculi. No enhancing renal mass. There is mild bladder wall thickening. GASTROINTESTINAL TRACT: Minimal stool and gas is seen in colon without distention. The small bowel loops are normal caliber. Appendix is normal caliber. ABDOMINAL WALL: No significant hernia is appreciated. LYMPH NODES: No abnormal size lymph nodes seen. VASCULAR: Unremarkable PELVIC VISCERA: Unremarkable OSSEOUS STRUCTURES: No aggressive lytic or sclerotic process seen. CT/CT abdomen pelvis wo/w IV con IMPRESSION: 1. No radiopaque urolith or hydroureteronephrosis. 2. There are small right renal cysts. 3. Mild bladder wall thickening. Fleischner guidelines were followed.
[2022-06-08] MEDS: iohexoL 350 MG/ML 100 ML INFUS..BTL IV (11:15)
== END 2022-06-08 10:39 | disposition home or self-care (01) ==
LOC: HO.CT 10:38
PROVIDERS: PCP Internal Medicine; Visit Provider Urology
DX: R31.29 Other microscopic hematuria (principal)
CPT/HCPCS: 74178; Q9967

== ENCOUNTER → 2022-06-26 12:35 | Outpatient (BNVA) | payer OTHER, SELFPAY | PROVIDERS: PCP Internal Medicine; Visit Provider Urology | DX: N40.1 Benign prostatic hyperplasia with lower urinary tract symptoms (principal); R39.198 Other difficulties with micturition; R31.29 Other microscopic hematuria | CPT/HCPCS: 52000 ==

== ENCOUNTER 2022-07-02 09:21 | Outpatient (REF) | payer OTHER, SELFPAY ==
[2022-07-02 09:35] LABS: MANUAL DIFF FLAG NO
[2022-07-02 10:54] LABS: Basophils Percent Auto 0.9 % (0-2); Eosinophils Absolute Auto 0.3 X10*3/uL (0.0-0.4); Eosinophils Percent Auto 5.6 % (0-4); Hematocrit 46.9 % (42.0-52.0); Hemoglobin 15.2 g/dl (14.0-18.0); Imm Gran Abs Auto 0.01 X10*3/uL (0.00-0.03); Imm Gran Pct Auto 0.2 % (0.0-0.4); Immature Retic Fraction 8.6 % (2.3-13.4); Lymphocytes Absolute Auto 1.5 X10*3/uL (1.2-4.9); Lymphocytes Percent Auto 32.7 % (20-40); Mean Corpuscular HGB Conc 32.4 g/dl (31.0-36.0); Mean Corpuscular Hemoglobin 27.3 pg (27.0-33.0); Mean Corpuscular Volume 84.4 fL (80.0-98.0); Mean Platelet Volume 10.2 fL (9.4-12.4); Monocytes Absolute Auto 0.5 X10*3/uL (0.1-1.2); Monocytes Percent Auto 10.1 % (2-11); Neutrophils Absolute Auto 2.4 x10*3/uL (2.0-8.3); Neutrophils Percent Auto 50.5 % (45-73); Platelet Count 263 X10*3/uL (160-400); Red Blood Count 5.56 X10*6/uL (4.60-5.80); Red Cell Distribution Width 13.3 % (11.0-16.0); Retic HGB Equivalent 32.5 pg (30.0-35.0); Reticulocyte Percent 1.5 % (0.5-1.8); Reticulocytes Absolute 0.083 X10*6/uL (0.026-0.095); White Blood Count 4.7 X10*3/uL (4.8-10.8)
[2022-07-02 11:19] LABS: Estimated Average Glucose 128 mg/dL; Hemoglobin A1c % 6.1 %
[2022-07-02 11:38] LABS: Appearance Urine Clear; Color Urine Yellow; Glucose Urine UA Negative (Negative); Leukocyte Esterase Urine Negative (Negative); Nitrite Urine Negative (Negative); PH 5.5 (5.0-9.0); Specific Gravity - Urine >= 1.030 (1.005-1.025); Urine Blood Negative (Negative); Urine Ketones Negative (Negative); Urine Protein Trace mg/dL (Neg-Trace)
[2022-07-02 11:46] LABS: Bacteria Urine None Seen (None Seen); Hyaline Casts Urine 0-2 /LPF (0-2); Squamous Epithelial Cell Urine 0-2 /HPF (0-2); WBC Urine 0-5 /HPF (0-5)
[2022-07-02 11:54] LABS: Alanine Aminotransferase 20 U/L (0-40); Albumin Level 4.4 g/dL (3.5-5.0); Alkaline Phosphatase 70 U/L (39-117); Anion Gap 15 (12-20); Aspartate Amino Transferase 15 U/L (5-37); Bilirubin Total 0.8 mg/dL (0.0-1.0); Blood Urea Nitrogen 22 mg/dL (9-16); Calcium 9.6 mg/dL (8.4-10.2); Carbon Dioxide 25 mmol/L (22-29); Chloride 105 mmol/L (96-108); Cholesterol 204 mg/dL; Estimated Glomerular Filt Rate > 60; Glucose Random 93 mg/dL (60-115); HDL Cholesterol 57 mg/dL; Iron 132 mcg/dL (45-160); LDL Cholesterol Calculated 128 mg/dl; Percent Iron Saturation 44 % (15-50); Potassium 4.9 mmol/L (3.3-5.1); Sodium 140 mmol/L (135-145); Total Iron Binding Capacity 299 mcg/dL (228-428); Total Protein 7.1 g/dL (6.5-8.0); Triglycerides 96 mg/dL; Unsaturated Iron Binding 167 ug/dL
[2022-07-02 12:00] LABS: Ferritin 193 ng/mL (20-250); Folate 11.1 ng/mL (> or = 4.0); Free T4 (Free Thyroxine) 0.88 ng/dL (0.71-1.85); Prostate Specific Antigen Scr 0.68 ng/mL (<0.05-4.0); Vitamin B12 265 pg/mL (200-900)
== END 2022-07-02 09:22 | disposition home or self-care (01) ==
LOC: HO.LAB 09:21
PROVIDERS: PCP Internal Medicine; Visit Provider Internal Medicine
DX: Z00.00 Encounter for general adult medical examination without abnormal findings (principal); Z12.5 Encounter for screening for malignant neoplasm of prostate; E53.8 Deficiency of other specified B group vitamins; R32 Unspecified urinary incontinence; R73.02 Impaired glucose tolerance (oral); E78.00 Pure hypercholesterolemia, unspecified; R31.9 Hematuria, unspecified; G47.33 Obstructive sleep apnea (adult) (pediatric)
CPT/HCPCS: 36415; 80053; 80061; 81001; 82607; 82728; 82746; 83036; 83540; 84153; 84439; 84443; 85025; 85045

== ENCOUNTER → 2022-10-29 08:53 | Outpatient (BNVA) | payer OTHER, SELFPAY | PROVIDERS: PCP Internal Medicine; Visit Provider Urology | DX: N40.1 Benign prostatic hyperplasia with lower urinary tract symptoms (principal); N13.8 Other obstructive and reflux uropathy; R39.198 Other difficulties with micturition; R31.29 Other microscopic hematuria; N39.8 Other specified disorders of urinary system | CPT/HCPCS: 51798 ==

== ENCOUNTER 2023-04-02 14:40 | Outpatient (AMB) | payer OTHER, SELFPAY ==
[2023-04-02 14:45] VITALS: BP 164/98; PULSE 75; O2SAT 100; BMI 30.4
--- NOTE | 2023-04-02 14:45 | MHC.PC.OV ---
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: No Executive Compensation Analyst: Not Required per policy Accompanied by: Self / Same As Patient Allergies No Known Allergies Allergy (Verified 04/02/23 14:45) Medication List - Last Reconciled 04/02/23 by Shahid Longoria MD cyanocobalamin (vitamin B-12) 1,000 mcg PO DAILY sildenafil 50 mg PO DAILY PRN tamsulosin (Flomax) 0.4 mg PO BEDTIME Tobacco use date assessed: 07/08/22 Dental Screening Dental Screen Date: 04/02/23 Did you have a dental visit in the last 12 months?: No Did you have a dental problem in the last 6 months where you did not have access to dental care?: No Was dental information given to patient?: Patient has dentist HPI PE HPI Details 62-year-old obese male with a history of GERD impaired glucose tolerance hypercholesterolemia BPH last seen in June 2022. Patient is here for physical. Colonoscopy up-to-date 2014. Review of the notes in October 2022 was seen by the urologist for microscopic hematuria and BPH on tamsulosin advised cystoscopy r eat tinnitus, not sleeping well, gerd PFSH Medical History Bilateral hand numbness Hypercholesterolemia Impaired glucose tolerance Hiatal hernia GERD (gastroesophageal reflux disease) Pulmonary nodule Vitamin B12 deficiency Surgical History Cholelithiasis No pertinent past surgical history Family History Father Diabetes Acute CVA (cerebrovascular accident) Stroke Mother Diabetes Hypertension Maternal Grandfather Lung cancer Maternal Grandmother Lung cancer Brother Diabetes Social History (Updated 04/02/23 @ 15:06 by Shahid Longoria MD) Household Members: Spouse and Children Housing: House Alcohol intake: current Patient Tobacco Use Status: Former Tobacco user Cigarettes Per Day: 10 Years Smoked: 10 yrs stopped 1993 e-Cigarette/Vaping Use: Never Used Second Hand Smoke Exposure: No service: No Current occupational status: employed Cognitive needs: No Hearing needs: No Vision needs: Yes Questionnaire PHQ-9 Over the last 2 weeks, how often have you been bothered by any of the following problems? 1. Little interest or pleasure in doing things: not at all 2. Feeling down, depressed, or hopeless: not at all 3. Trouble falling or staying asleep, or sleeping too much: not at all 4. Feeling tired or having little energy: not at all 5. Poor appetite or overeating: not at all 6. Feeling bad about yourself - or that you are a failure or have let yourself or your family down: not at all 7. Trouble concentrating on things, such as reading the newspaper or watching television: not at all 8. Moving or speaking so slowly that other people could have noticed. Or the opposite - being so fidgety or restless that you have been moving around a lot more than usual: not at all 9. Thoughts that you would be better off or of hurting yourself in some way: not at all Total score: 0 Depression Screening Interpretation: Negative Depression Screening Done: Yes Source: Developed by Drs. Jordi Zamora, Ron Berger and colleagues, with an educational sid from [employer]. Thrive Questionnaire Date Thrive assessed: 07/08/22 AUDIT C Alcohol Use Questionnaire (AUDIT-C) 1. How often do you have a drink containing alcohol?: Monthly or less 2. How many drinks containing alcohol do you have on a typical day when you are drinking?: 1 or 2 3. How often do you have six or more drinks on one occasion?: Never Total Score: 1 LUCIANA-7 AMB Questionnaire LUCIANA-7 Date LUCIANA - 7 assessed: 07/08/22 Source: Developed by Drs. Jordi Zamora, Ron Berger and colleagues, with an educational sid from [employer]. Review of Systems Const Denies poor appetite and Denies weakness Eyes Denies no additional complaints ENT Reports Normal hearing present, Denies dizziness, Denies nasal congestion, Denies tinnitus and Denies sore throat Card Denies chest pain, Denies syncope, Denies rapid heart rate and Denies dyspnea Resp Denies cough and Denies dyspnea GI Denies change in stool character, Reports constipation, Denies diarrhea, Denies nausea and Denies vomiting Denies dysuria and Denies urinary frequency Neuro Reports Normal hearing present, Denies confusion, Denies dizziness, Denies syncope and Denies weakness Psych Denies confusion Physical exam (Primary Care) Vital Signs: Last Vital Signs Pulse 75 04/02/23 14:45 BP 164/98 H 04/02/23 14:45 Pulse Ox 100 04/02/23 14:45 Oxygen Delivery Method Room Air 04/02/23 14:45 BMI result Body Mass Index 30.4 Tobacco/Smoking Status: Tobacco use Status Tobacco use date assessed 07/08/22 04/02/23 14:46 Patient Tobacco Use Status Former Tobacco user 04/02/23 14:46 e-Cigarette/Vaping Use Never Used 04/02/23 14:46 PHQ-9: PHQ-9 Score PHQ-9: Total score 0 04/02/23 14:46 Depression Screening Interpretation: Negative Thrive Assessment: Date of Thrive Assessment Date Thrive assessed 07/08/22 04/02/23 14:46 Const General: No confusion Orientation/consciousness: No confusion HENMT Head: Yes normocephalic Ears: external ears normal and TM's normal bilaterally Face and sinus: Yes normal facial exam Mouth: moist mucous membranes Throat: Yes tonsils normal Eyes Conjunctivae: conjunctivae normal Pupils: Equal, round and reactive pupils present and Pupil accommodation reflex normal Direct Ophthalmoscopy: normal light reflex Neck Neck: No lymphadenopathy Thyroid: Thyroid normal Chest Chest palpation & inspection: normal inspection of the chest Resp Effort & Inspection: normal respiratory effort and no audible wheezes Auscultation: clear to auscultation bilaterally, no crackles, no wheezes and lung sounds not diminished Cardio Rate: regular rate Rhythm: regular rhythm Peripheral pulses: radial pulses present and dorsalis pedis present GI Other: guaiac neg prostate , no mass Palpation (GI): no masses Auscultation: normal bowel sounds and normoactive bowel sounds Skin General skin exam: no rashes or lesions noted Rashes: no rashes Neuro General: No confusion Cranial nerves: Yes Equal, round and reactive pupils present and Yes Normal hearing present Cognition (Neuro): normal cognition Gait exam (Neuro): Normal gait present Motor exam (neuro): 5/5 motor strength present throughout Deep tendon reflexes (DTR's): Right brachioradialis reflex intensity grade: 2+, Left brachioradialis reflex intensity grade: 2+, Right patellar reflex intensity grade: 2+ and Left patellar reflex intensity grade: 2+ Extrem General: No edema Assessment and Plan Assessment & Plan (1) Annual physical exam: Code(s): Z00.00 - Encounter for general adult medical examination without abnormal findings (2) Impaired glucose tolerance: Code(s): R73.02 - Impaired glucose tolerance (oral) Plan: Decrease the amount of carbohydrate intake, pasta, bread, rice and potatoes are all sugar and that is aside from all the sweet stuff, remember that fruits are good but they are Sweet also. Hemoglobin A1c testing 6.1 (3) GERD (gastroesophageal reflux disease): Code(s): K21.9 - Gastro-esophageal reflux disease without esophagitis Plan: Avoid the foods that causes that usually spicy foods, tomato products, juices, coffee, soda and foods that your sensitive to. After eating do not lie down, allow 3-4 hours before in lie down. And keep the head of bed above 30 degrees to avoid the acid from going up. (4) Hypercholesterolemia: Code(s): E78.00 - Pure hypercholesterolemia, unspecified Plan: Avoid fried foods, chicken skin, eggs, butter margarine, pastries and meat. Be it pork or beef they have a lot of cholesterol LDL goal of less than 130 and triglyceride of less than 150 (5) Sleep apnea: Comment: April 2020, decline CPAP 12/2020 Code(s): G47.30 - Sleep apnea, unspecified Qualifiers: Sleep apnea type: obstructive Qualified Code(s): G47.33 - Obstructive sleep apnea (adult) (pediatric) Plan: Discussed importance of sleep apnea treatment (6) BPH loc w urin obs/LUTS: Code(s): N40.1 - Benign prostatic hyperplasia with lower urinary tract symptoms Plan: Patient follows up with urology and is on tamsulosin (7) Blood pressure elevated without history of HTN: Code(s): R03.0 - Elevated blood-pressure reading, without diagnosis of hypertension Plan: monitor the BP a home Orders: Orders Hemoglobin A1c Today R73.02 - Impaired glucose tolerance (oral) Comprehensive Met. Panel Today R73.02 - Impaired glucose tolerance (oral) Complete Blood Count Auto Diff Today R73.02 - Impaired glucose tolerance (oral) Lipid Panel Today E78.00 - Pure hypercholesterolemia, unspecified, R73.02 - Impaired glucose tolerance (oral) Thyroid Stimulating Hormone Today R73.02 - Impaired glucose tolerance (oral) Vitamin B12 and Folate Today R73.02 - Impaired glucose tolerance (oral) Prostate Specific Antigen Scr Today R73.02 - Impaired glucose tolerance (oral) Free T4 (Free Thyroxine) Today R73.02 - Impaired glucose tolerance (oral) Medications: Refilled cyanocobalamin (vitamin B-12) 1,000 mcg PO DAILY 90 caps 2RF E53.8 - Deficiency of other specified B group vitamins Coding Level of Care Code Est Pt Prev Care 40-64y(11948) Diagnoses Annual physical exam Z00.00 Impaired glucose tolerance R73.02 GERD (gastroesophageal reflux disease) K21.9 Hypercholesterolemia E78.00 Obstructive sleep apnea syndrome G47.33 Sleep apnea type: obstructive BPH loc w urin obs/LUTS N40.1 Blood pressure elevated without history of HTN R03.0
[2023-04-02 15:00] VITALS: BP 140/80
== END 2023-04-02 15:33 | disposition home or self-care (01) ==
PROVIDERS: PCP Internal Medicine; Visit Provider Internal Medicine
DX: Z00.00 Encounter for general adult medical examination without abnormal findings (principal); R73.02 Impaired glucose tolerance (oral); K21.9 Gastro-esophageal reflux disease without esophagitis; E78.00 Pure hypercholesterolemia, unspecified; G47.33 Obstructive sleep apnea (adult) (pediatric); N40.1 Benign prostatic hyperplasia with lower urinary tract symptoms; R03.0 Elevated blood-pressure reading, without diagnosis of hypertension
CPT/HCPCS: 99396

== ENCOUNTER 2023-07-02 09:04 | Outpatient (REF) | payer OTHER, SELFPAY ==
[2023-07-02 09:18] LABS: MANUAL DIFF FLAG NO
[2023-07-02 10:02] LABS: Basophils Percent Auto 0.6 % (0-2); Eosinophils Absolute Auto 0.2 X10*3/uL (0.0-0.4); Eosinophils Percent Auto 4.9 % (0-4); Hematocrit 45.7 % (42.0-52.0); Hemoglobin 14.8 g/dl (14.0-18.0); Imm Gran Abs Auto 0.03 X10*3/uL (0.00-0.03); Imm Gran Pct Auto 0.6 % (0.0-0.4); Lymphocytes Absolute Auto 1.2 X10*3/uL (1.2-4.9); Lymphocytes Percent Auto 25.4 % (20-40); Mean Corpuscular HGB Conc 32.4 g/dl (31.0-36.0); Mean Corpuscular Hemoglobin 27.1 pg (27.0-33.0); Mean Corpuscular Volume 83.5 fL (80.0-98.0); Mean Platelet Volume 9.9 fL (9.4-12.4); Monocytes Absolute Auto 0.4 X10*3/uL (0.1-1.2); Monocytes Percent Auto 8.2 % (2-11); Neutrophils Absolute Auto 2.9 x10*3/uL (2.0-8.3); Neutrophils Percent Auto 60.3 % (45-73); Platelet Count 243 X10*3/uL (160-400); Red Blood Count 5.47 X10*6/uL (4.60-5.80); Red Cell Distribution Width 13.6 % (11.0-16.0); White Blood Count 4.9 X10*3/uL (4.8-10.8)
[2023-07-02 10:05] LABS: Estimated Average Glucose 123 mg/dL; Hemoglobin A1c % 5.9 % (<6.0)
[2023-07-02 10:30] LABS: Alanine Aminotransferase 37 U/L (0-40); Albumin Level 4.4 g/dL (3.5-5.0); Alkaline Phosphatase 73 U/L (39-117); Anion Gap 11 (12-20); Aspartate Amino Transferase 17 U/L (5-37); Bilirubin Total 0.5 mg/dL (0.0-1.0); Blood Urea Nitrogen 18 mg/dL (9-16); Calcium 9.5 mg/dL (8.4-10.2); Carbon Dioxide 28 mmol/L (22-29); Chloride 106 mmol/L (96-108); Cholesterol 197 mg/dL (<200); Estimated Glomerular Filt Rate > 60; Glucose Random 104 mg/dL (60-115); HDL Cholesterol 55 mg/dL (>40); LDL Cholesterol Calculated 121 mg/dL (<100); Potassium 4.7 mmol/L (3.3-5.1); Sodium 140 mmol/L (135-145); Total Protein 7.5 g/dL (6.5-8.0); Triglycerides 108 mg/dL (<150)
[2023-07-02 10:52] LABS: Free T4 (Free Thyroxine) 0.85 ng/dL (0.71-1.85); Thyroid Stimulating Hormone 3.25 uIU/mL (0.32-4.0)
[2023-07-02 10:56] LABS: Folate 9.1 ng/mL (> or = 4.0); Prostate Specific Antigen Scr 0.68 ng/mL (<0.05-4.0); Vitamin B12 277 pg/mL (200-900)
== END 2023-07-02 09:05 | disposition home or self-care (01) ==
LOC: HO.LAB 09:04
PROVIDERS: PCP Internal Medicine; Visit Provider Internal Medicine
DX: Z12.5 Encounter for screening for malignant neoplasm of prostate (principal); E78.00 Pure hypercholesterolemia, unspecified; R73.02 Impaired glucose tolerance (oral)
CPT/HCPCS: 36415; 80053; 80061; 82607; 82746; 83036; 84153; 84439; 84443; 85025

== ENCOUNTER 2023-07-26 09:24 | Outpatient (AMB) | payer OTHER, SELFPAY ==
[2023-07-26 09:25] VITALS: BP 138/76; PULSE 68; O2SAT 99; BMI 31.2
--- NOTE | 2023-07-26 09:25 | A.OFFPC_ITS ---
Vital Signs 07/26/23 09:25 Height 5 ft 7 in Weight 199 lb 0.2 oz BMI 31.2 BP 138/76 Blood Pressure Location Lt brachial Position Sitting Pulse 68 Pulse Source Pulse Oximeter Pulse Oximetry (%) 99 Oxygen Delivery Method Room Air Intake Visit Reasons: IGT, blood pressure, IGT Intake Note: Patient is here to follow up on IGT, blood pressure Client Operations Manager Required: No Allergies No Known Allergies Allergy (Verified 07/26/23 09:26) Medication List - Last Reconciled 07/26/23 by Shahid Longoria MD cyanocobalamin (vitamin B-12) 1,000 mcg PO DAILY sildenafil 50 mg PO DAILY PRN tamsulosin (Flomax) 0.4 mg PO BEDTIME Tobacco use date assessed: 07/26/23 Dental Screening Dental Screen Date: 07/26/23 Did you have a dental visit in the last 12 months?: No Did you have a dental problem in the last 6 months where you did not have access to dental care?: No HPI IGT, blood pressure, IGT HPI Details 63-year-old obese male with impaired glu cose tolerance GERD hypercholesterolemia obstructive sleep apnea BPH coming in for follow-up. Last seen in March having an elevated blood pressure is here for follow-up. Patient's colonoscopy is up-to-date noted B12 to be a little bit low [facility] Medical History (Updated 07/26/23 @ 09:49 by Shahid Longoria MD) Blood pressure elevated without history of HTN Screening PSA (prostate specific antigen) Bilateral conjunctivitis Microscopic hematuria Slowing of urinary stream Urinary retention Urinary incontinence Bilateral hand pain Vision problem Bilateral hand numbness Hypercholesterolemia Impaired glucose tolerance Hiatal hernia GERD (gastroesophageal reflux disease) Pulmonary nodule Vitamin B12 deficiency Surgical History Cholelithiasis No pertinent past surgical history Family History Father Diabetes Acute CVA (cerebrovascular accident) Stroke Mother Diabetes Hypertension Maternal Grandfather Lung cancer Maternal Grandmother Lung cancer Brother Diabetes Social History (Updated 04/02/23 @ 15:06 by Shahid Longoria MD) Household Members: Spouse and Children Housing: House Alcohol intake: current Patient Tobacco Use Status: Former Tobacco user Cigarettes Per Day: 10 Years Smoked: 10 yrs stopped 1994 Packs per year/per ci.00 e-Cigarette/Vaping Use: Never Used Second Hand Smoke Exposure: No service: No Current occupational status: employed Cognitive needs: No Hearing needs: No Vision needs: Yes Questionnaire Thrive Questionnaire Date Thrive assessed: 07/26/23 I am a: Patient What is your living situation today?: I have a steady place to live Within the past 12 months, did the food you bought not last and you didn't have the money to get more?: Never true Within the past 12 months, did you worry whether your food would run out before you got money to buy more?: Never true Do you have trouble paying for medicines?: No Do you have trouble getting transportation to medical appointments?: No Do you have trouble paying your heating and electricity bill?: No Do you have trouble taking care of your child, family member or friend?: No Do you have trouble with day-to-day activities such as bathing, preparing meals, shopping, managing finances, etc.?: No Are you currently unemployed and looking for a job?: No Are you interested in more education?: No Please select the resources that you would like help with: None THRIVE Score: 0 AUDIT C Alcohol Use Questionnaire (AUDIT-C) 1. How often do you have a drink containing alcohol?: Monthly or less 2. How many drinks containing alcohol do you have on a typical day when you are drinking?: 1 or 2 3. How often do you have six or more drinks on one occasion?: Never Total Score: 1 LUCIANA-7 AMB Questionnaire LUCIANA-7 Date LUCIANA - 7 assessed: 07/26/23 Source: Developed by Drs. Jordi Zamora, Birgit Jacobson, Ron Buitrago and colleagues, with an educational sid from [employer]. Physical exam (Primary Care) Vital Signs: Last Vital Signs Pulse 68 07/26/23 09:25 BP 138/76 07/26/23 09:25 Pulse Ox 99 07/26/23 09:25 Oxygen Delivery Method Room Air 07/26/23 09:25 BMI result Body Mass Index 31.2 Tobacco/Smoking Status: Tobacco use Status Tobacco use date assessed 07/26/23 07/26/23 09:26 Patient Tobacco Use Status Former Tobacco user 07/26/23 09:26 e-Cigarette/Vaping Use Never Used 07/26/23 09:26 Thrive Assessment: Date of Thrive Assessment Date Thrive assessed 07/26/23 07/26/23 09:26 Const General: alert; No acute distress Eyes Conjunctivae: conjunctivae normal Resp Auscultation: clear to auscultation bilaterally Cardio Rate: regular rate Rhythm: regular rhythm GI Inspection: Yes normal to inspection Extrem General: Yes normal to inspection and No edema Assessment and Plan Assessment & Plan (1) Impaired glucose tolerance: Code(s): R73.02 - Impaired glucose tolerance (oral) Plan: Decrease the amount of carbohydrate intake, pasta, bread, rice and potatoes are all sugar and that is aside from all the sweet stuff, remember that fruits are good but they are Sweet also. (2) GERD (gastroesophageal reflux disease): Code(s): K21.9 - Gastro-esophageal reflux disease without esophagitis Plan: Avoid the foods that causes that usually spicy foods, tomato products, juices, coffee, soda and foods that your sensitive to. After eating do not lie down, allow 3-4 hours before in lie down. And keep the head of bed above 30 degrees to avoid the acid from going up. (3) Hypercholesterolemia: Code(s): E78.00 - Pure hypercholesterolemia, unspecified Plan: Avoid fried foods, chicken skin, eggs, butter margarine, pastries and meat. Be it pork or beef they have a lot of cholesterol LDL goal of less than 130 and triglyceride of less than 150. (4) Vitamin B12 deficiency: Code(s): E53.8 - Deficiency of other specified B group vitamins Plan: Discussed about vitamin B12 deficiency advised to take 1000 mcg once a day Medications: Refilled cyanocobalamin (vitamin B-12) 1,000 mcg PO DAILY 90 caps 2RF E53.8 - Deficiency of other specified B group vitamins Coding Level of Care Code Est Pt Level 4 (19705) Diagnoses Impaired glucose tolerance R73.02 GERD (gastroesophageal reflux disease) K21.9 Hypercholesterolemia E78.00 Vitamin B12 deficiency E53.8
== END 2023-07-26 10:01 | disposition home or self-care (01) ==
PROVIDERS: PCP Internal Medicine; Visit Provider Internal Medicine
DX: R73.02 Impaired glucose tolerance (oral) (principal); K21.9 Gastro-esophageal reflux disease without esophagitis; E78.00 Pure hypercholesterolemia, unspecified; E53.8 Deficiency of other specified B group vitamins
CPT/HCPCS: 99214

== ENCOUNTER 2023-10-26 09:25 | Outpatient (AMB) | payer OTHER, SELFPAY ==
[2023-10-26 10:25] VITALS: BP 150/72; PULSE 69; TEMP 36.2; O2SAT 96; BMI 31.8
--- NOTE | 2023-10-26 10:25 | MHC.OFFWIV ---
Intake Vital Signs 10/26/23 10:25 Height 5 ft 7 in Weight 203 lb BMI 31.8 BP 150/72 H Blood Pressure Location Lt brachial Position Sitting Pulse 69 Pulse Source Pulse Oximeter Temp 97.2 F Temp Source Temporal Artery Scan Pulse Oximetry (%) 96 Oxygen Delivery Method Room Air Intake Visit Reasons: Lt eye Discharge/ Lt side face Pain Intake Note: pt is here today for eye discharge and lft side face pain started wednesday Patient Tobacco Use Status: Former Tobacco user Allergies No Known Allergies Allergy (Verified 10/26/23 10:32) Do you need a note to return to daycare/school/sports/work: No HPI HPI Comments History of Present Illness Details This is a 63-year-old male with a past medical history of gastroesophageal reflux disease and BPH presenting for evaluation left ear pain and discharge from his left eye without visual changes that have been present since Wednesday. Patient also reports having a dry cough which is primarily nocturnal. Patient has taken Tylenol only for relief of his discomfort. Patient denies having any fevers, chills, dental pain or pain with swallowing. [facility] Medical History Blood pressure elevated without history of HTN Screening PSA (prostate specific antigen) Bilateral conjunctivitis Microscopic hematuria Slowing of urinary stream Urinary retention Urinary incontinence Bilateral hand pain Vision problem Bilateral hand numbness Hypercholesterolemia Impaired glucose tolerance Hiatal hernia GERD (gastroesophageal reflux disease) Pulmonary nodule Vitamin B12 deficiency Surgical History Cholelithiasis No pertinent past surgical history Family History Father Diabetes Acute CVA (cerebrovascular accident) Stroke Mother Diabetes Hypertension Maternal Grandfather Lung cancer Maternal Grandmother Lung cancer Brother Diabetes Social History Household Members: Spouse and Children Housing: House Alcohol intake: current Patient Tobacco Use Status: Former Tobacco user Cigarettes Per Day: 10 Years Smoked: 10 yrs stopped 1993 e-Cigarette/Vaping Use: Never Used Second Hand Smoke Exposure: No service: No Current occupational status: employed Cognitive needs: No Hearing needs: No Vision needs: Yes Review of Systems Const All systems reviewed & are unremarkable except as noted in HPI and below Denies chills, Denies fatigue, Denies fever(s) and Denies headache(s) Eyes Reports no additional complaints, Denies blurry vision, Denies exophthalmos, Denies change in vision, Reports eye discharge and Reports irritation (left eye) ENT Reports no additional complaints, Denies ear discharge, Reports otalgia (left), Denies headache(s), Denies hearing loss, Denies mouth pain, Denies sinus pressure and Denies sore throat Card Reports no additional complaints Resp Reports no additional complaints GI Reports no additional complaints Reports no additional complaints Musc Reports no additional complaints Skin/Breast Reports system reviewed and no additional complaints, except as documented Neuro Reports no additional complaints and Denies headache(s) Psych Reports no additional complaints Endo Reports no additional complaints and Denies fatigue Physical Exam Vital Signs: Last Vital Signs Temp 97.2 F 10/26/23 10:25 Pulse 69 10/26/23 10:25 BP 150/72 H 10/26/23 10:25 Pulse Ox 96 10/26/23 10:25 Oxygen Delivery Method Room Air 10/26/23 10:25 BMI result Body Mass Index 31.8 Patient is afebrile. Const General: cooperative, healthy appearing, comfortable, no acute distress, well developed, alert, awake and Physically active; No lethargic Nutritional Appearance: well nourished Orientation/consciousness: patient oriented x3 and No lethargic Limitations: no limitations HEENT Head: Yes normal to inspection and Yes normocephalic Ears: hearing grossly normal bilaterally, TM normal on the right, left TM abnormal (erythema, no edema or lesions of left ear canal), EAC's normal and no periauricular adenopathy General nose exam: Normal external nose present and Normal nares present Face and sinus: Yes normal facial exam and Yes sinuses nontender Mouth: Normal oral and palatal mucosa present, tongue normal, oropharynx normal and moist mucous membranes Teeth and gingiva: dentition normal and gingiva normal Throat: Yes posterior oropharynx normal and No postnasal drainage Eyes Visual Lawrence: normal visual lawrence by confrontation Alignment and Position: alignment normal Periorbital: periorbital findings normal Eyelids: Yes eyelids normal Conjunctivae: conjunctival abnormal (left conjunctivae injected; no lesions or ulcerations noted) Sclerae: sclerae normal Corneas: corneas normal Pupils: Equal, round and reactive pupils present EOM: EOMs intact bilaterally Neck Lymphatic: no lymphadenopathy noted Resp Effort & Inspection: normal respiratory effort, able to speak in complete sentences, no audible wheezes, no cough and no respiratory distress Auscultation: clear to auscultation bilaterally Cardio Rate: regular rate Rhythm: regular rhythm Skin General skin exam: no rashes or lesions noted Neuro General: patient oriented x3 Cranial nerves: Yes Equal, round and reactive pupils present Psych Appearance: grossly normal Mental Status: mental status grossly normal Insight: Good insight present (Psych) Judgement: Good judgement present (Psych) Assessment & Plan Assessment & Plan (1) Otitis media of left ear: Comment: Mild conjunctivitis left eye; no exudates -- will defer Rx. of eyedrops at this time. Code(s): H66.92 - Otitis media, unspecified, left ear Qualifiers: Otitis media type: unspecified Qualified Code(s): H66.92 - Otitis media, unspecified, left ear Plan: Amoxicillin TID x 7 days. Medications: New amoxicillin 500 mg PO TID 21 caps 0RF Coding Level of Care Code Est Pt Level 3 (49469) Diagnoses Left otitis media, unspecified otitis media type H66.92 Otitis media type: unspecified Time Spent (min) 20
== END 2023-10-26 11:07 | disposition home or self-care (01) ==
PROVIDERS: PCP Internal Medicine; Visit Provider Physician Assistant
DX: H66.92 Otitis media, unspecified, left ear (principal)
CPT/HCPCS: 99213

== ENCOUNTER 2023-10-28 09:56 | Outpatient (AMB) | payer OTHER, SELFPAY ==
--- NOTE | 2023-10-28 10:09 | A.OFFVIS_ITS ---
Intake Visit Reasons: 1y/microscopic hematuria/BPH/PSA Intake Note: Patient presents today for Microscopy Hematuria, BPH & PSA: Meds: Tamsulosin & Sildenafil Allergies to Antibiotic: None Blood Thinner: None Truck Spotter Required: No Accompanied by: Self / Same As Patient Allergies No Known Allergies Allergy (Verified 10/28/23 10:13) HPI Comments Details: 10/28/2023--Ravindra is a 63-year-old male who presents to the office for follow-up of microscopic hematuria and BPH. The patient is taking tamsulosin 0.4 mg QD wi th improvement in urinary symptoms. Denies any obstructive voiding symptoms of slow stream or blood in the urine. The patient uses generic Viagra p.r.n. medications prescribed by PCP. Reviewed PSA results with the patient. PSA--07/02/2023--0.68 ng/mL. Plan to continue tamsulosin daily and monitor PSA. Follow-up in 1 year. Review of chart: 10/29/22--The patient is taking tamsulosin 0.4 mg QD with benefits. Denies any urinary symptoms of slow stream or blood in the urine. Evaluation today--Blood: 25 Darin/uL, leukocytes: negative. Bladder scan PVR: 36 mL. CAT scan 06/08/22-- small right renal cyst and mild bladder wall thickening. I have discussed microscopic hematuria may be due to but not limited to kidney stones, BPH, or masses in the urinary tract. Work up at this time no evidence of urinary tract cancer. 06/26/22-- Ravindra is a 61-year-old gentleman who is being followed for obstructive LUTS. The patient was started on tamsulosin 0.4 mg by PCP. He states urinary stream has improved since starting flomax. LV 04/17/22. I discussed w/u for microscopic hematuria reviewed labs, PSA -03/31/21 - 0.58. Evaluation today UA - Blood -10 Darin/uL, leuk negative. I have reviewed recent results CT Urogram - mild bladder wall thickening. Office cysto - mild/mod trabeculations, minimal cellule changes meatal stenosis- urethral meatus dilated with manuela sounds. Plan: continue flomax [facility] Medical History Blood pressure elevated without history of HTN Screening PSA (prostate specific antigen) Bilateral conjunctivitis Microscopic hematuria Slowing of urinary stream Urinary retention Urinary incontinence Bilateral hand pain Vision problem Bilateral hand numbness Hypercholesterolemia Impaired glucose tolerance Hiatal hernia GERD (gastroesophageal reflux disease) Pulmonary nodule Vitamin B12 deficiency Surgical History Cholelithiasis No pertinent past surgical history Family History Father Diabetes Acute CVA (cerebrovascular accident) Stroke Mother Diabetes Hypertension Maternal Grandfather Lung cancer Maternal Grandmother Lung cancer Brother Diabetes Social History Household Members: Spouse and Children Housing: House Alcohol intake: current Patient Tobacco Use Status: Former Tobacco user Cigarettes Per Day: 10 Years Smoked: 10 yrs stopped 1993 e-Cigarette/Vaping Use: Never Used Second Hand Smoke Exposure: No service: No Current occupational status: employed Cognitive needs: No Hearing needs: No Vision needs: Yes Review of Systems Const All systems reviewed & are unremarkable except as noted in HPI and below Reports no additional complaints Eyes Reports no additional complaints ENT Reports no additional complaints Card Reports no additional complaints Resp Reports no additional complaints GI Reports no additional complaints Reports as per HPI Musc Reports no additional complaints Skin/Breast Reports system reviewed and no additional complaints, except as documented Neuro Reports no additional complaints Psych Reports no additional complaints Endo Reports no additional complaints Meng/Lymph Reports no additional complaints Aller/Immun Reports no additional complaints Results AMB Urinalysis, Automated UA Leukoctes 0 Petra/uL Last Edit by DAYLIN Dunaway on 10/28/23 10:25 UA Nitrite Negative Last Edit by DAYLIN Dunaway on 10/28/23 10:25 UA Urobilinogen 0.2 mg/dL Last Edit by DAYLIN Dunaway on 10/28/23 10:2 5 UA Protein 15 mg/dL Last Edit by DAYLIN Dunaway on 10/28/23 10:25 UA pH 6.0 Last Edit by Josh Klein A on 10/28/23 10:25 UA Blood 10 Darin/uL Last Edit by Josh Klein A on 10/28/23 10:25 UA Specific [place] 1.025 Last Edit by Josh Klein A on 10/28/23 10: 25 UA Ketone Negative Last Edit by Josh Klein A on 10/28/23 10:25 UA Bilirubin 0 mg/dL Last Edit by Josh Klein A on 10/28/23 10:25 UA Glucose 0 mg/dL Last Edit by DAYLIN Dunaway on 10/28/23 10:25 Results Reviewed Results Reviewed: Laboratory Last Values Urine pH (Auto) 6.0 10/28/23 10:14 Specific [place] (Auto) 1.025 10/28/23 10:14 Urine Protein (Auto) 15 mg/dL 10/28/23 10:14 Glucose (UA)(Auto) 0 mg/dL 10/28/23 10:14 Urine Ketones (Auto) Negative 10/28/23 10:14 Urine Blood (Auto) 10 Darin/uL 10/28/23 10:14 Urine Nitrite (Auto) Negative 10/28/23 10:14 Urine Bilirubin (Auto) 0 mg/dL 10/28/23 10:14 Urine Urobilinogen (Auto) 0.2 mg/dL 10/28/23 10:14 Leukocyte Esterase (Auto) 0 Petra/uL 10/28/23 10:14 Assessment & Plan Assessment & Plan (1) BPH loc w urin obs/LUTS: Code(s): N40.1 - Benign prostatic hyperplasia with lower urinary tract symptoms Category: Medical (2) Slowing of urinary stream: Code(s): R39.198 - Other difficulties with micturition Category: Medical (3) Microscopic hematuria: Code(s): R31.29 - Other microscopic hematuria Category: Medical (4) Screening PSA (prostate specific antigen): Code(s): Z12.5 - Encounter for screening for malignant neoplasm of prostate Category: Medical Plan Continue PSA screening, tamsulosin daily. Follow-up in 1 year Orders: Orders AMB Post Void Residual by ultrasound Today N39.8 - Other specified disorders of urinary system AMB Urinalysis Automated Today Z13.9 - Encounter for screening, unspecified PSA,Total (Free>4and<10) 10 Months Z12.5 - Encounter for screening for malignant neoplasm of prostate Patient Instructions: The patient had an opportunity to ask questions regarding treatment plan. The patient expressed understanding and agreement with the above treatment plan. The patient is aware they should contact our office by phone for worsening of their current condition or the appearance of new symptoms. Compliance is encouraged with any medications and followup testing that is ordered. It is a privilege to be allowed the opportunity to participate in the urologic care of your patient. If you have any questions or concerns regarding treatment for the above conditions please do not hesitate to contact me. The office telephone contact is [phone]. This note is constructed in part using voice recognition software. While every effort has been made to ensure accuracy logging equipment operator errors may have been included. Yours sincerely, Glenn Oneill MD Coding Level of Care Code Est Pt Level 3 (40654) Diagnoses BPH loc w urin obs/LUTS N40.1 Slowing of urinary stream R39.198 Microscopic hematuria R31.29 Screening PSA (prostate specific antigen) Z12.5
== END 2023-10-28 11:05 | disposition home or self-care (01) ==
PROVIDERS: PCP Internal Medicine; Visit Provider Urology
DX: N40.1 Benign prostatic hyperplasia with lower urinary tract symptoms (principal); R39.198 Other difficulties with micturition; R31.29 Other microscopic hematuria; Z12.5 Encounter for screening for malignant neoplasm of prostate; Z13.9 Encounter for screening, unspecified
CPT/HCPCS: 99213

== ENCOUNTER → 2023-10-28 09:56 | Outpatient (BNVA) | payer OTHER, SELFPAY | PROVIDERS: PCP Internal Medicine; Visit Provider Urology | DX: R31.29 Other microscopic hematuria (principal); N40.1 Benign prostatic hyperplasia with lower urinary tract symptoms; N13.8 Other obstructive and reflux uropathy; R39.198 Other difficulties with micturition; Z79.899 Other long term (current) drug therapy | CPT/HCPCS: 81003 ==

== ENCOUNTER 2024-05-19 12:57 | Outpatient (AMB) | payer OTHER, SELFPAY ==
--- NOTE | 2024-05-19 13:13 | A.OFFPC_ITS ---
Vital Signs 05/19/24 13:14 05/19/24 13:40 Height 5 ft 7 in Weight 198 lb 8 oz BMI 31.1 BP 146/66 H 124/60 Blood Pressure Location Lt brachial Lt brachial Position Sitting Sitting Pulse 67 Pulse Source Pulse Oximeter Pulse Oximetry (%) 97 Oxygen Delivery Method Room Air Intake Visit Reasons: annual exam Allergies No Known Allergies Allergy (Verified 05/19/24 13:17) Medication List - Last Reconciled 05/19/24 by Shahid Longoria MD sildenafil 50 mg PO DAILY PRN tamsulosin (Flomax) 0.4 mg PO BEDTIME Tobacco use date assessed: 05/19/24 Dental Screening Dental Screen Date: 05/19/24 Did you have a dental visit in the last 12 months?: No Did you have a dental problem in the last 6 months where you did not have access to dental care?: No Was dental information given to patient?: Patient has dentist HPI annual exam HPI Details The patient is a 63-year-old male presenting with follow-up for sleep apnea and urinary issues, alongside new concerns about gastrointestinal discomfort. The patient has a history of sleep apnea diagnosed previously, where he was noted to have stopped breathing 16 times per hour while supine. He is currently not using a CPAP device and management has included sleeping on his side. He reports waking occasionally with shortness of breath, but this has decreased in frequency. Urinary retention has been an ongoing issue with incomplete bladder emptying previously confirmed by tests. The patient takes tamsulosin, yet reports continuous hesitancy and partial emptying. Recent discussions include muscle relaxation to facilitate emptying rather than prostatic enlargement being the primary issue. Episodic gastroesophageal reflux disease (GERD) presents with discomfort after meals, persisting for up to four hours. He notes discomfort at night particularly, despite early dinners. His symptoms prompt consideration for a gastroenterology evaluation due to persistent fullness and prolonged digestion leading to discomfort. Low Vitamin B12 was identified in past lab work. The patient received an intravitreal injection in April for an unspecified eye condition. - Advisement for light dinner meals in e venings to mitigate GERD symptoms. - Sleep positioning guidance to alleviat e sleep apnea episodes. - Follow-up blood work to monitor glycem ic levels and prostate health. - Encouraged hydration balance (skewing away from excessive intake). - Alcohol consumption is minimal: one gl ass of wine approximately every three months. - No history of tobacco use or recreatio nal drugs. - Family history confirms lung cancer wi th paternal grandparents. - Adherence to prior health advice noted . - Respiratory: Reports waking occasional ly with shortness of breath. - Gastrointestinal: Reports fullness and prolonged digestion post meals, especially at nighttime. - Urinary: Denies nocturnal enuresis mor e than once nightly; reports incomplete bladder emptying. - Neurological: Denies syncope, nausea, or vomiting. - Labs: June results showed normal b lood count, glucose control (HbA1c 5.9%), normal electrolytes, and renal and liver function. Mild Vitamin B12 deficiency noted. - Sleep Study: Indicated stopped breathi ng 16 times per hour when supine. - Urology Assessment: Identifies urinary retention due to muscular tension, not prostatic hypertrophy. [facility] Medical History Screening PSA (prostate specific antigen) Blood pressure elevated without history of HTN Bilateral conjunctivitis Microscopic hematuria Slowing of urinary stream Urinary retention Urinary incontinence Bilateral hand pain Vision problem Bilateral hand numbness Hypercholesterolemia Impaired glucose tolerance Hiatal hernia GERD (gastroesophageal reflux disease) Pulmonary nodule Vitamin B12 deficiency Surgical History Cholelithiasis No pertinent past surgical history Family History Father Diabetes Acute CVA (cerebrovascular accident) Stroke Mother Diabetes Hypertension Maternal Grandfather Lung cancer Maternal Grandmother Lung cancer Brother Diabetes Social History (Updated 05/19/24 @ 13:42 by Shahid Longoria MD) Household Members: Spouse and Children Housing: House Alcohol intake: current Comment: once Q 3 months 1 glass of wine Patient Tobacco Use Status: Former Tobacco user Cigarettes Per Day: 10 Years Smoked: 10 yrs stopped 1993 e-Cigarette/Vaping Use: Never Used Second Hand Smoke Exposure: No service: No Current occupational status: employed Cognitive needs: No Hearing needs: No Vision needs: Yes Questionnaire PHQ-9 Over the last 2 weeks, how often have you been bothered by any of the following problems? 1. Little interest or pleasure in doing things: not at all 2. Feeling down, depressed, or hopeless: not at all 3. Trouble falling or staying asleep, or sleeping too much: not at all 4. Feeling tired or having little energy: not at all 5. Poor appetite or overeating: not at all 6. Feeling bad about yourself - or that you are a failure or have let yourself or your family down: not at all 7. Trouble concentrating on things, such as reading the newspaper or watching television: not at all 8. Moving or speaking so slowly that other people could have noticed. Or the opposite - being so fidgety or restless that you have been moving around a lot more than usual: not at all 9. Thoughts that you would be better off or of hurting yourself in some way: not at all Total score: 0 Depression Screening Interpretation: Negative Depression Screening Done: Yes 77942 - PHQ-9 Billing: Yes Source: Developed by Drs. Jordi Zamora, Birgit Jacobson, Ron Buitrago and colleagues, with an educational sid from [employer]. Thrive Questionnaire Date Thrive assessed: 05/19/24 I am a: Patient What is your living situation today?: I have a steady place to live Within the past 12 months, did the food you bought not last and you didn't have the money to get more?: Never true Within the past 12 months, did you worry whether your food would run out before you got money to buy more?: Never true Do you have trouble paying for medicines?: No Do you have trouble getting transportation to medical appointments?: No Do you have trouble paying your heating and electricity bill?: No Do you have trouble taking care of your child, family member or friend?: No Do you have trouble with day-to-day activities such as bathing, preparing meals, shopping, managing finances, etc.?: No Are you currently unemployed and looking for a job?: No Are you interested in more education?: No Please select the resources that you would like help with: None Currently or been in a relationship where the following occur: No concerns reported THRIVE Score: 0 AUDIT C Alcohol Use Questionnaire (AUDIT-C) 1. How often do you have a drink containing alcohol?: Never 3. How often do you have six or more drinks on one occasion?: Never Total Score: 0 LUCIANA-7 AMB Questionnaire LUCIANA-7 Date LUCIANA - 7 assessed: 05/19/24 Feeling nervous, anxious, or on edge: 0 = Not at all Not being able to stop or control worryin = Not at all Worrying too much about different things: 0 = Not at all Trouble relaxin = Not at all Being so restless that it is hard to sit still: 0 = Not at all Becoming easily annoyed or irritable: 0 = Not at all Feeling afraid as if something awful might happen: 0 = Not at all Total LUCIANA-7 score (0-4 normal; 5-9 mild; 10-14 moderate; 15-21 severe): 0 Source: Developed by Drs. Jordi Zamora, Birgit Jacobson, Ron Buitrago and colleagues, with an educational sid from [employer]. LUCIANA-7 Assessment Billing LUCIANA-7 Assessment Tool: LUCIANA-7 Assessment 11836 Review of Systems Const Denies poor appetite and Denies weakness Eyes Denies no additional complaints ENT Reports Normal hearing present, Denies dizziness, Denies nasal congestion, Denies tinnitus and Denies sore throat Card Denies chest pain, Denies syncope, Denies rapid heart rate and Denies dyspnea Resp Denies cough and Denies dyspnea GI Denies change in stool character, Reports constipation, Denies diarrhea, Denies nausea and Denies vomiting Denies dysuria and Denies urinary frequency Neuro Reports Normal hearing present, Denies confusion, Denies dizziness, Denies syncope and Denies weakness Psych Denies confusion Physical exam (Primary Care) Vital Signs: Last Vital Signs Pulse 67 05/19/24 13:14 BP 146/66 H 05/19/24 13:14 Pulse Ox 97 05/19/24 13:14 Oxygen Delivery Method Room Air 05/19/24 13:14 BMI result Body Mass Index 31.1 Tobacco/Smoking Status: Tobacco use Status Tobacco use date assessed 05/19/24 05/19/24 13:18 Patient Tobacco Use Status Former Tobacco user 05/19/24 13:18 e-Cigarette/Vaping Use Never Used 05/19/24 13:18 PHQ-9: PHQ-9 Score PHQ-9: Total score 0 05/19/24 13:18 Depression Screening Interpretation: Negative Thrive Assessment: Date of Thrive Assessment Date Thrive assessed 05/19/24 05/19/24 13:18 Currently or been in a relationship where the following occur: No concerns reported Const General: No confusion Orientation/consciousness: No confusion HENMT Head: Yes normocephalic Ears: external ears normal and TM's normal bilaterally Face and sinus: Yes normal facial exam Mouth: moist mucous membranes Throat: Yes tonsils normal Eyes Conjunctivae: conjunctivae normal Pupils: Equal, round and reactive pupils present and Pupil accommodation reflex normal Direct Ophthalmoscopy: normal light reflex Neck Neck: No lymphadenopathy Thyroid: Thyroid normal Chest Chest palpation & inspection: normal inspection of the chest Resp Effort & Inspection: normal respiratory effort and no audible wheezes Auscultation: clear to auscultation bilaterally, no crackles, no wheezes and lung sounds not diminished Cardio Rate: regular rate Rhythm: regular rhythm Peripheral pulses: radial pulses present and dorsalis pedis present GI Palpation (GI): no masses Auscultation: normal bowel sounds and normoactive bowel sounds Rectal Exam - Male: Yes deferred Skin General skin exam: no rashes or lesions noted Rashes: no rashes Neuro General: No confusion Cranial nerves: Yes Equal, round and reactive pupils present and Yes Normal hearing present Cognition (Neuro): normal cognition Gait exam (Neuro): Normal gait present Motor exam (neuro): 5/5 motor strength present throughout Deep tendon reflexes (DTR's): Right brachioradialis reflex intensity grade: 2+, Left brachioradialis reflex intensity grade: 2+, Right patellar reflex intensity grade: 2+ and Left patellar reflex intensity grade: 2+ Extrem General: No edema Coding Level of Care Code Est Pt Prev Care 40-64y(81428) Diagnoses Annual physical exam Z00.00 GERD (gastroesophageal reflux disease) K21.9 Vitamin B12 deficiency E53.8 Impaired glucose tolerance R73.02 Hypercholesterolemia E78.00 Central retinal vein occlusion, unspecified complication status, unspecified laterality H34.8192 Retinal vein occlusion complication status: unspecified complication status Laterality: unspecified laterality BPH loc w urin obs/LUTS N40.1 Additional Codes LUCIANA-7 Assessment Billing - LUCIANA-7 Assessment Tool: LUCIANA-7 Assessment 82523 ([id number]) PHQ-9 - 88674 - PHQ-9 Billing: Yes ([id number]) Assessment & Plan Assessment & Plan (1) Annual physical exam: Code(s): Z00.00 - Encounter for general adult medical examination without abnormal findings Category: Medical (2) GERD (gastroesophageal reflux disease): Code(s): K21.9 - Gastro-esophageal reflux disease without esophagitis Category: Medical (3) Vitamin B12 deficiency: Code(s): E53.8 - Deficiency of other specified B group vitamins Category: Medical (4) Impaired glucose tolerance: Code(s): R73.02 - Impaired glucose tolerance (oral) Category: Medical (5) Hypercholesterolemia: Code(s): E78.00 - Pure hypercholesterolemia, unspecified Category: Medical (6) Central retinal vein occlusion: Code(s): H34.8192 - Central retinal vein occlusion, unspecified eye, stable Category: Medical Qualifiers: Retinal vein occlusion complication status: unspecified complication status Laterality: unspecified laterality Qualified Code(s): H34.8192 - Central retinal vein occlusion, unspecified eye, stable (7) BPH loc w urin obs/LUTS: Code(s): N40.1 - Benign prostatic hyperplasia with lower urinary tract symptoms Category: Medical Plan - Refer to gastroenterology for persistent GERD. - Continue tamsulosin for urinary issues, providing muscle relaxation to improve emptying. - Order follow-up labs for Vitamin levels and glucose monitoring. - Continue positional therapy for sleep apnea management. - Plan a follow-up prostate examination. I discussed with the patient the management of his GERD, emphasizing the importance of meal timing and composition in symptom management. We reviewed the connection between urinary retention and muscular factors rather than prostate e nlargement, continuing tamsulosin regimen. Referral to gastroenterology was agreed upon for thorough evaluation of his persistent postprandial discomfort. I advised monitoring B12 levels and adjusting subsequent treatment as necessary. For his sleep apnea, I reiterated the benefits of positional therapy. We discussed the importance of routine blood work, particularly due to prior low B12 and glucose management. All risks and benefits of current management strategies were reviewed, with the patient agreeable to continued follow-up. - Sleep on your side to help manage sleep apnea. - Schedule and attend gastroenterology consultation. - Maintain adequate hydration, but avoid excess. - Have follow-up labs done for Vitamin B12 and glucose. - Report any new or worsening symptoms promptly. - Continue with prescribed medications as directed. Orders: Orders Hemoglobin A1c Today R73.02 - Impaired glucose tolerance (oral) Lipid Panel Today E78.00 - Pure hypercholesterolemia, unspecified Vitamin B12 and Folate Today E78.00 - Pure hypercholesterolemia, unspecified Prostate Specific Antigen Scr Today E78.00 - Pure hypercholesterolemia, unspecified Complete Blood Count Auto Diff Today E78.00 - Pure hypercholesterolemia, unspecified Comprehensive Met. Panel Today E78.00 - Pure hypercholesterolemia, unspecified Thyroid Stimulating Hormone Today E78.00 - Pure hypercholesterolemia, unspecified Free T4 (Free Thyroxine) Today E78.00 - Pure hypercholesterolemia, unspecified UA CC w/rflx Micro + Cult Today E78.00 - Pure hypercholesterolemia, unspecified, R30.0 - Dysuria Referrals Gastroenterology Referral K21.9 - Gastro-esophageal reflux disease without esophagitis
[2024-05-19 13:14] VITALS: BP 146/66; PULSE 67; O2SAT 97; BMI 31.1
[2024-05-19 13:40] VITALS: BP 124/60
--- OUTSIDE RECORDS SUMMARY | 2024-05-19 14:25 | XMS_ITS ---
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
== END 2024-05-19 14:02 | disposition home or self-care (01) ==
PROVIDERS: PCP Internal Medicine; Visit Provider Internal Medicine
DX: Z00.00 Encounter for general adult medical examination without abnormal findings (principal); K21.9 Gastro-esophageal reflux disease without esophagitis; E53.8 Deficiency of other specified B group vitamins; R73.02 Impaired glucose tolerance (oral); E78.00 Pure hypercholesterolemia, unspecified; N40.1 Benign prostatic hyperplasia with lower urinary tract symptoms

== ENCOUNTER → 2024-05-19 12:57 | Outpatient (BNVA) | payer OTHER, SELFPAY | PROVIDERS: PCP Internal Medicine; Visit Provider Internal Medicine | DX: Z00.00 Encounter for general adult medical examination without abnormal findings (principal); K21.9 Gastro-esophageal reflux disease without esophagitis; E53.8 Deficiency of other specified B group vitamins; R73.02 Impaired glucose tolerance (oral); E78.00 Pure hypercholesterolemia, unspecified; H34.8192 Central retinal vein occlusion, unspecified eye, stable; N40.1 Benign prostatic hyperplasia with lower urinary tract symptoms; N13.8 Other obstructive and reflux uropathy; Z79.899 Other long term (current) drug therapy | CPT/HCPCS: 96127 ==

== ENCOUNTER 2024-07-18 11:03 | Outpatient (AMB) | payer OTHER, SELFPAY ==
--- NOTE | 2024-07-18 11:30 | MHC.OFFWIV ---
Intake Vital Signs 07/18/24 11:34 Weight 198 lb BP 130/80 Blood Pressure Location Lt brachial Position Sitting Pulse 78 Pulse Source Pulse Oximeter Temp 97.8 F Temp Source Oral Pulse Oximetry (%) 98 Oxygen Delivery Method Room Air Intake Visit Reasons: EP-cough, body ache, tiredness, headaches Intake Note: Patient here for cough, body aches, headaches and fatigue that has been present for 3 days. Patient Tobacco Use Status: Former Tobacco user Allergies No Known Allergies Allergy (Verified 07/18/24 11:35) Do you need a note to return to daycare/school/sports/work: Yes HPI HPI Comments History of Present Illness Details History - The patient is a 64-year-old male presenting with a cough, fatigue, and headaches, initially starting three days ago. - The cough is particularly bothersome at night and is sometimes accompanied by a wheezing sensation upon bouts of coughing. - He reports overall malaise and cephalgia, without a fixed pattern of fever manifestations. - The patient denies shortness of breath or wheezing. - Recent sinus pain was experienced - He attempted symptom management with [id number] generic decongestants and questioned potential contraindications with his current medication, tamsulosin. - Past medical history highlights former tobacco use without COPD or asthma Physical Exam General: Cooperative, healthy appearing, comfortable and no acute distress Orientation/consciousness: Patient oriented x3 Limitations: No limitations Head: Normal to inspection Ears: Hearing grossly normal bilaterally, external ears normal and TM's with erythema bilaterally Nose: Normal external nose present, Normal nares present and No nasal discharge present Face and sinus: Normal facial exam and Yes sinuses nontender Mouth: Normal oral and palatal mucosa present and moist mucous membranes Throat: Yes tonsils normal, Yes uvula midline. Posterior oropharynx erythema Eyes: Appearance normal, both eyes and all related structures Neck: Normal visual inspection Respiratory: Clear to auscultation bilaterally. Normal respiratory effort, able to speak in complete sentences, no respiratory distress, not tachypneic, no tripod positioning and no use of accessory muscles Cardiovascular: Regular rate and rhythm. Normal S1 and S2 Skin: No rashes or lesions noted Neuro: Patient oriented x3 Extremities: Normal to inspection and Yes no clubbing, cyanosis or edema [facility] Medical History Screening PSA (prostate specific antigen) Blood pressure elevated without history of HTN Bilateral conjunctivitis Microscopic hematuria Slowing of urinary stream Urinary retention Urinary incontinence Bilateral hand pain Vision problem Bilateral hand numbness Hypercholesterolemia Impaired glucose tolerance Hiatal hernia GERD (gastroesophageal reflux disease) Pulmonary nodule Vitamin B12 deficiency Surgical History Cholelithiasis No pertinent past surgical history Family History Father Diabetes Acute CVA (cerebrovascular accident) Stroke Mother Diabetes Hypertension Maternal Grandfather Lung cancer Maternal Grandmother Lung cancer Brother Diabetes Social History (Updated 05/19/24 @ 13:42 by Shahid Longoria MD) Household Members: Spouse and Children Housing: House Alcohol intake: current Comment: once Q 3 months 1 glass of wine Patient Tobacco Use Status: Former Tobacco user Cigarettes Per Day: 10 Years Smoked: 10 yrs stopped 1993 e-Cigarette/Vaping Use: Never Used Second Hand Smoke Exposure: No service: No Current occupational status: employed Cognitive needs: No Hearing needs: No Vision needs: Yes Review of Systems Const All systems reviewed & are unremarkable except as noted in HPI and below Physical Exam Vital Signs: Last Vital Signs Temp 97.8 F 07/18/24 11:34 Pulse 78 07/18/24 11:34 BP 130/80 07/18/24 11:34 Pulse Ox 98 07/18/24 11:34 Oxygen Delivery Method Room Air 07/18/24 11:34 Assessment & Plan Assessment & Plan (1) Acute viral syndrome: Code(s): B34.9 - Viral infection, unspecified Plan: Diagnostic testing will be conducted for influenza, COVID-19, and RSV. Symptom management includes continued use of decongestants, with possible addition of an antihistamine like Tatianna D, considering tamsulosin use. Recommend [id number]-[id number] analgesics, such as ibuprofen and acetaminophen, for symptomatic relief. Focus is on rest and hydration, avoiding antiviral medications due to adverse potential and minimal benefit in this case. Work absence is suggested until clinical improvement is achieved. The patient will consult pharmacists regarding medication interactions. Patient was informed and verbally consented to the use of an ambient scribe for clinic note documentation during this visit Orders: Orders SARS-CoV2/FLU/RSV Today R09.89 - Other specified symptoms and signs involving the circulatory and respiratory systems Coding Level of Care Code Est Pt Level 3 (63981) Diagnoses Acute viral syndrome B34.9
[2024-07-18 11:34] VITALS: BP 130/80; PULSE 78; TEMP 36.6; O2SAT 98
--- OUTSIDE RECORDS SUMMARY | 2024-07-18 13:48 | XMS_ITS | Patient Health Record ---
Author Organization [facility] Address [address] [place] [id number] Care Team Providers Care Professional Application Designer Name Role Phone Shahid Longoria MD Primary Care Provider Nikolay Delong Jr Unavailable REASON FOR REFERRAL No Information MEDICATIONS Medication SIG (Take, Route, Fr equency, Duration) Notes Start Date End Date Status Vitamin D 1000 UNIT 1 tablet Orally Once a day Active MoviPrep 100 GM as directed before c olonoscopy Orally for 1 dose 11/09/2014 Active SOCIAL HISTORY Sex Assigned At : Social History Observation Description Sex Assigned At Unknown PROBLEMS Problem Type ICD Code Onset Dates Problem Status W/U Status Risk SNOMED Code Notes Problem Esophageal reflux (530.81) Active confirmed 647419127 Problem Colon cancer screening (V76.51) Active confirmed [id number] PLAN OF TREATMENT Future Test Test Name Order Date COLONOSCOPY 11/09/2014 Insurance Providers Payer Name Payer Address Payer Phone Subscriber Number Group Number Insured Name Patient Relationship to Insured Coverage Start Date Coverage End Date [employer] [address] KIERRA DRUMMOND [phone] [id number] KALYANI WOODALL Self - patient is the insured MEDICAL (GENERAL) HISTORY Medical History History ICD Code Denies ND,DM,CVA,Lung disease,renal dise ase
--- OUTSIDE RECORDS SUMMARY | 2024-07-18 13:49 | XMS_ITS | Clinical Summary ---
Author Organization [facility] Address [address] [place] [address] Care Team Providers Care Racehorse Trainer Name Role Phone Unavailable Primary Care Provider Unavailabl e Active Problems Problem Noted Date Diagnosed Date Carpal tunnel syndrome of right wrist 10/06/2022 Ulnar neuropathy of right upper extremity 2022 Social History Tobacco Use Types Packs/Day Years Used Date Smoking Tobacco: Never Assessed Sex and Gender Information Value Date Recorded Sex Assigned at Choose not to disclose 03/2023 2:21 PM EDT Gender Identity Choose not to disclose 2:21 PM EDT Sexual Orientation Choose not to disclose 2022 2:21 PM EDT Plan of Treatment Health Maintenance Due Date Last Done Comments Hepatitis C Virus Screening 1961 HIV Screening 1974 DTaP/Tdap/Td Vaccines (1 - Tdap) 1980 Pap Smear (Ages 21-65) 1982 Colonoscopy 2006 Pneumococcal Vaccines 50+ (1 of 1 - PCV) 2011 Zoster (Shingles) Vaccine (1 of 2) 2011 Influenza Vaccine 12/16/2023 COVID-19 Vaccine ( - 2023-2 5 season) 2024 RSV Vaccine 60 years and old er and Patients (1 - 1-dose 75+ series) 2036 Hepatitis B Vaccines Aged Out No long er eligible based on patient's age to complete this topic
== END 2024-07-18 11:48 | disposition home or self-care (01) ==
PROVIDERS: PCP Internal Medicine; Visit Provider Physician Assistant
DX: B34.9 Viral infection, unspecified (principal)

== ENCOUNTER 2024-07-18 11:03 | Outpatient (REF) | payer OTHER, SELFPAY ==
[2024-07-18 14:45] LABS: Influenza A PCR NEGATIVE (Negative); Influenza B PCR NEGATIVE (Negative); Resp Syncy Virus RNA Qual PCR NEGATIVE (Negative); SARS COV2 PCR INHOUSE NEGATIVE (Negative)
--- OUTSIDE RECORDS SUMMARY | 2024-07-18 14:51 | XMS_ITS | Clinical Summary ---
Author Organization [facility] Address [address] [place] [address] Care Team Providers Care Chronometer Tester Name Role Phone Unavailable Primary Care Provider [...]
== END 2024-07-18 11:04 | disposition home or self-care (01) ==
LOC: HO.LAB 11:03
PROVIDERS: PCP Internal Medicine; Visit Provider Physician Assistant
DX: B34.9 Viral infection, unspecified (principal); R09.89 Other specified symptoms and signs involving the circulatory and respiratory systems; R05.8 Other specified cough
CPT/HCPCS: 0241U

== ENCOUNTER 2024-10-21 07:51 | Outpatient (REF) | payer OTHER, SELFPAY ==
[2024-10-21 09:49] LABS: PSA,Total (Free>4and<10) 0.87 ng/mL (0.00-4.00)
== END 2024-10-21 07:52 | disposition home or self-care (01) ==
LOC: HO.LAB 07:51
PROVIDERS: PCP Internal Medicine; Visit Provider Urology
DX: Z12.5 Encounter for screening for malignant neoplasm of prostate (principal)
CPT/HCPCS: 36415; 84153

== ENCOUNTER 2024-11-24 16:06 | Outpatient (AMB) | payer OTHER, SELFPAY ==
--- NOTE | 2024-11-23 20:13 | MHC.OFFVIS ---
Intake Visit Reasons: 1Yr PSA Intake Note: Patient presents today via telehealth for 1yr PSA 10/21 Total PSA:0.87 Urology Meds: Tamsulosin Allergies to Antibiotic: None Blood Thinner: None Seasonal Retail Merchandiser Required: No Accompanied by: Self / Same As Patient Allergies No Known Allergies Allergy (Verified 11/24/24 16:08) HPI Comments Details: 11/24/24--PSA--10/21/24---0.87 History of Present Illness - The patient is a 64-year-old male presenting for follow-up on Benign Prostatic Hyperplasia management. - The patient has been taking tamsulosin every other day to manage symptoms associated with Benign Prostatic Hyperplasia. - He reports a good urinary flow with this regimen, although he prefers to minimize medication intake. - The purpose of tamsulosin is to relax the bladder neck and prostate muscles, reducing the workload on the bladder and preventing weakening over time. - PSA levels have been stable, with a recent result of 0.87, which is within the normal range. Results - PSA level: 0.87, stable and within normal range. Plan - Continue tamsulosin every other day as it maintains good urinary flow. - Monitor PSA levels regularly to ensure stability. - Refill prescription for tamsulosin sent to pharmacy. 10/28/2023--Ravindra is a 63-year-old male who presents to the office for follow-up of microscopic hematuria and BPH. The patient is taking tamsulosin 0.4 mg QD with improvement in urinary symptoms. Denies any obstructive voiding symptoms of slow stream or blood in the urine. The patient uses generic Viagra p.r.n. medications prescribed by PCP. Reviewed PSA results with the patient. PSA--07/02/2023--0.68 ng/mL. Plan to continue tamsulosin daily and monitor PSA. Follow-up in 1 year. Review of chart: 10/29/22--The patient is taking tamsulosin 0.4 mg QD with benefits. Denies any urinary symptoms of slow stream or blood in the urine. Evaluation today--Blood: 25 Darin/uL, leukocytes: negative. Bladder scan PVR: 36 mL. CAT scan 06/08/22-- small right renal cyst and mild bladder wall thickening. I have discussed microscopic hematuria may be due to but not limited to kidney stones, BPH, or masses in the urinary tract. Work up at this time no evidence of urinary tract cancer. 06/26/22-- Ravindra is a 61-year-old gentleman who is being followed for obstructive LUTS. The patient was started on tamsulosin 0.4 mg by PCP. He states urinary stream has improved since starting flomax. LV 04/17/22. I discussed w/u for microscopic hematuria reviewed labs, PSA -03/31/21 - 0.58. Evaluation today UA - Blood -10 Darin/uL, leuk negative. I have reviewed recent results CT Urogram - mild bladder wall thickening. Office cysto - mild/mod trabeculations, minimal cellule changes meatal stenosis- urethral meatus dilated with manuela sounds. Plan: continue flomax [facility] Medical History Screening PSA (prostate specific antigen) Blood pressure elevated without history of HTN Bilateral conjunctivitis Microscopic hematuria Slowing of urinary stream Urinary retention Urinary incontinence Bilateral hand pain Vision problem Bilateral hand numbness Hypercholesterolemia Impaired glucose tolerance Hiatal hernia GERD (gastroesophageal reflux disease) Pulmonary nodule Vitamin B12 deficiency Surgical History Cholelithiasis No pertinent past surgical history Family History Father Diabetes Acute CVA (cerebrovascular accident) Stroke Mother Diabetes Hypertension Maternal Grandfather Lung cancer Maternal Grandmother Lung cancer Brother Diabetes Social History Household Members: Spouse and Children Housing: House Alcohol intake: current Comment: once Q 3 months 1 glass of wine Patient Tobacco Use Status: Former Tobacco user Cigarettes Per Day: 10 Years Smoked: 10 yrs stopped 1993 e-Cigarette/Vaping Use: Never Used Second Hand Smoke Exposure: No service: No Current occupational status: employed Cognitive needs: No Hearing needs: No Vision needs: Yes Review of Systems Const All systems reviewed & are unremarkable except as noted in HPI and below Reports no additional complaints Eyes Reports no additional complaints ENT Reports no additional complaints Card Reports no additional complaints Resp Reports no additional complaints GI Reports no additional complaints Reports as per HPI Musc Reports no additional complaints Skin/Breast Reports system reviewed and no additional complaints, except as documented Neuro Reports no additional complaints Psych Reports no additional complaints Endo Reports no additional complaints Meng/Lymph Reports no additional complaints Aller/Immun Reports no additional complaints Telehealth Telehealth Telehealth Platform: [facility] Location of provider rendering services: practice address Location of patient: address on file Patient Identification confirmed using: Name, : Yes Telehealth method: video Patient verbally consented to treatment: Yes Patient verbally consented to billing insurance company: Yes Patient informed of any privacy concerns related to visit: Yes Assessment & Plan Assessment & Plan (1) BPH loc w urin obs/LUTS: Code(s): N40.1 - Benign prostatic hyperplasia with lower urinary tract symptoms Category: Medical (2) Slowing of urinary stream: Code(s): R39.198 - Other difficulties with micturition Category: Medical (3) Microscopic hematuria: Code(s): R31.29 - Other microscopic hematuria Category: Medical (4) Screening PSA (prostate specific antigen): Code(s): Z12.5 - Encounter for screening for malignant neoplasm of prostate Category: Medical Plan Plan - Continue tamsulosin every other day as it maintains good urinary flow. - Monitor PSA levels regularly to ensure stability. - Refill prescription for tamsulosin sent to pharmacy. Patient Instructions: The patient had an opportunity to ask questions regarding treatment plan. The patient expressed understanding and agreement with the above treatment plan. The patient is aware they should contact our office by phone for worsening of their current condition or the appearance of new symptoms. Compliance is encouraged with any medications and followup testing that is ordered. It is a privilege to be allowed the opportunity to participate in the urologic care of your patient. If you have any questions or concerns regarding treatment for the above conditions please do not hesitate to contact me. The office telephone contact is [phone]. This note is constructed in part using voice recognition software. While every effort has been made to ensure accuracy cloth dyeing range tender errors may have been included. Yours sincerely, Glenn Oneill MD Scribe Plan - Not visible on output: Patient was informed and verbally consented to the use of an ambient scribe for clinic note documentation during this visit. Coding Level of Care Code Tele Est Pt Level 3 (05441) Diagnoses BPH loc w urin obs/LUTS N40.1 Slowing of urinary stream R39.198 Microscopic hematuria R31.29 Screening PSA (prostate specific antigen) Z12.5
--- OUTSIDE RECORDS SUMMARY | 2024-11-24 16:09 | XMS_ITS ---
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
--- OUTSIDE RECORDS SUMMARY | 2024-11-24 16:09 | XMS_ITS | Clinical Summary ---
Author Organization [facility] Address [address] [place] [address] Care Team Providers Care Technical Developer Name Role Phone Unavailable Primary Care Provider Unavailabl e Active Problems Problem Noted Date Diagnosed Date Carpal tunnel syndrome of right wrist 10/06/2022 Ulnar neuropathy of right upper extremity 2022 Social History Tobacco Use Types Packs/Day Years Used Date Smoking Tobacco: Never Assessed Comments Unknown Sex and Gender Information Value Date Recorded Sex Assigned at Choose not to disclose 03/2023 2:21 PM EDT Legal Sex Male 2:16 PM EDT Gender Identity Choose not to [...] Zoster (Shingles) Vaccine (1 of 2) 2011 COVID-19 Vaccine (1 - 2023-2 5 season) 2024 Influenza Vaccine 12/15/2024 RSV Vaccine 60 years and old er and Patients (1 - 1-dose 75+ series) 2036 Hepatitis B Vaccines Aged Out No long er eligible based on patient's age to complete this topic Insurance [facility] WORK[employer]
--- OUTSIDE RECORDS SUMMARY | 2024-11-24 16:09 | XMS_ITS | Patient Health Record ---
Author Organization [facility] Address [address] [place] [id number] Care Team Providers Care Movie Star Name Role Phone Shahid Longoria MD Primary Care Provider Nikolay Delong Jr Unavailable [phone] Reason For Referral No Information Medications Medication SIG (Take, Route, Fr equency, Duration) Notes Start Date End Date Status Vitamin D 1000 UNIT 1 tablet Orally Once a day Active MoviPrep 100 GM as directed before c olonoscopy Orally for 1 dose 11/09/2014 Active Problems Problem Type SNOMED Code ICD Code Onset Dates Problem Status W/U Status Risk Notes Problem 925432830 Esophageal reflux (530.81) Active confirmed Problem 023114118 Colon cancer screening (V76.51) Active confirmed Plan Of Treatment Future Test Test Name Order Date COLONOSCOPY 11/09/2014 Insurance Providers Payer Name Payer Address Payer Phone Subscriber Number Group Number Insured Name Patient Relationship to Insured Coverage Start Date Coverage End Date [employer] [address] [place] [phone] [id number] KALYANI WOODALL Self - patient is the insured Medical (General) History Medical History History ICD Code Denies [place],DM,CVA,Lung disease,renal dise ase
== END 2024-11-24 17:00 | disposition home or self-care (01) ==
LOC: HO.HUSH 16:06
PROVIDERS: PCP Internal Medicine; Visit Provider Urology
DX: N40.1 Benign prostatic hyperplasia with lower urinary tract symptoms (principal); R39.198 Other difficulties with micturition; R31.29 Other microscopic hematuria; Z12.5 Encounter for screening for malignant neoplasm of prostate
CPT/HCPCS: 98004

== ENCOUNTER 2025-02-26 07:51 | Outpatient (REF) | payer OTHER, SELFPAY ==
--- OUTSIDE RECORDS SUMMARY | 2025-02-26 07:55 | XMS_ITS | Patient Health Record ---
Author Organization [facility] Address [address] [place] [id number] Care Team Providers Care Lpn Instructor Name Role Phone Shahid Longoria MD Primary Care Provider Nikolay Delong Jr Unavailable Reason For Referral No Information Medications Medication SIG (Take, Route, Fr equency, Duration) Notes Start Date End Date Status Vitamin D 1000 UNIT 1 tablet Orally Once a day Active MoviPrep 100 GM as directed before c olonoscopy Orally; Duration: 1 dose 11/09/2014 Active Problems Problem Type SNOMED Code ICD Code Onset Dates Problem Status W/U Status Risk Notes Problem Esophageal reflux (406618704) Esophageal reflux (530.81) Active confirmed Problem Colon cancer screening (778704922) Colon cancer screening (V76.51) Active confirmed Plan Of Treatment Future Test Test Name Order Date COLONOSCOPY 11/09/2014 Insurance Providers Payer Name Payer Address Payer Phone Subscriber Number Group Number Insured Name Patient Relationship to Insured Coverage Start Date Coverage End Date [employer] [address] [place] [phone] [id number] KALYANI WOODALL Self - patient is the insured Medical (General) History Medical History History ICD Code Denies [place],DM,CVA,Lung disease,renal dise ase
--- OUTSIDE RECORDS SUMMARY | 2025-02-26 07:55 | XMS_ITS | Clinical Summary ---
Author Organization [facility] Address [address] [place] [address] Care Team Providers Care Panel Cutter Name Role Phone Unavailable Primary Care Provider [...] Vaccine (1 of 2) 2011 Influenza Vaccine 12/15/2024 COVID-19 Vaccine (1 - 2023-2 5 season) 2025 RSV Vaccine 60 years and old er and Patients (1 - 1-dose 75+ series) 2036 Hepatitis B Vaccines Aged Out No long er eligible based on patient's age to complete this topic Insurance [facility] [place]
[2025-02-26 08:03] LABS: MANUAL DIFF FLAG NO
[2025-02-26 08:47] LABS: Hematocrit 48.6 % (42.0-52.0); Hemoglobin 15.1 g/dl (14.0-18.0); Imm Gran Abs Auto 0.02 X10*3/uL (0.00-0.03); Imm Gran Pct Auto 0.4 % (0.0-0.4); Lymphocytes Absolute Auto 1.6 X10*3/uL (1.2-4.9); Mean Corpuscular HGB Conc 31.1 g/dl (31.0-36.0); Mean Corpuscular Hemoglobin 26.3 pg (27.0-33.0); Mean Corpuscular Volume 84.7 fL (80.0-98.0); NRBC Abs Auto 0.000 X10*3/uL (0.0-0.012); NRBC Pct Auto 0.0 /100WBC (0.0-0.2); Platelet Count 235 X10*3/uL (160-400); Red Blood Count 5.74 X10*6/uL (4.60-5.80); White Blood Count 5.1 X10*3/uL (4.8-10.8)
[2025-02-26 08:54] LABS: Total Hemoglobin (HGBA1C) 3770.9232 umol/L
[2025-02-26 08:54] LABS: Appearance Urine Clear; Glucose Urine UA Negative (Negative); PH 6.0 (5.0-9.0); Specific Gravity - Urine 1.025 (1.005-1.025)
[2025-02-26 09:19] LABS: Alanine Aminotransferase 21 U/L (0-40); Albumin Level 4.6 g/dL (3.5-5.0); Alkaline Phosphatase 77 U/L (39-117); Anion Gap 12 (12-20); Aspartate Amino Transferase 19 U/L (5-37); Blood Urea Nitrogen 22 mg/dL (9-16); Calcium 9.1 mg/dL (8.4-10.2); Carbon Dioxide 28 mmol/L (22-29); Chloride 107 mmol/L (96-108); Cholesterol 170 mg/dL (<200); Estimated Glomerular Filt Rate > 60; HDL Cholesterol 47 mg/dL (>40); Potassium 4.7 mmol/L (3.3-5.1); Sodium 142 mmol/L (135-145); Total Protein 7.2 g/dL (6.5-8.0); Triglycerides 68 mg/dL (<150)
[2025-02-26 09:37] LABS: Free T4 (Free Thyroxine) 0.94 ng/dL (0.71-1.85); Thyroid Stimulating Hormone 4.22 uIU/mL (0.32-4.0)
[2025-02-26 09:45] LABS: Folate 9.0 ng/mL (> or = 4.0); Vitamin B12 316 pg/mL (200-900)
== END 2025-02-26 07:52 | disposition home or self-care (01) ==
LOC: HO.LAB 07:51
PROVIDERS: PCP Internal Medicine; Visit Provider Internal Medicine
DX: R73.02 Impaired glucose tolerance (oral) (principal); R30.0 Dysuria; E78.00 Pure hypercholesterolemia, unspecified; Z12.5 Encounter for screening for malignant neoplasm of prostate
CPT/HCPCS: 36415; 80053; 80061; 81003; 82607; 82746; 83036; 84153; 84439; 84443; 85025

== ENCOUNTER 2025-03-02 09:11 | Outpatient (REF) | payer OTHER, SELFPAY ==
--- NOTE | ~2025-03-02 | XR_ITS ---
EXAMINATION: XR HAND 3 OR MORE VIEWS LEFT HISTORY: M79.642 - Pain in left hand COMPARISON: Comparison is made with the prior examination dated 11/20/2020. FINDINGS: Three views of the left hand are submitted. Osseous mineralization is normal. A well-corticated osseous density at the dorsum of the wrist may be the result of old trauma. No acute fracture or dislocation is seen. There is mild osteoarthritis of the DIP joints. The soft tissues are unremarkable. XR/XR hand LT min 3V IMPRESSION: Mild osteoarthritis of the DIP joints. Electronically signed by: Jordi Mahoney MD 03/02/2025 10:39 AM EDT
== END 2025-03-02 09:12 | disposition home or self-care (01) ==
LOC: HO.XRAY 09:11
PROVIDERS: PCP Internal Medicine; Visit Provider Internal Medicine
DX: K21.9 Gastro-esophageal reflux disease without esophagitis (principal); E78.00 Pure hypercholesterolemia, unspecified; N40.1 Benign prostatic hyperplasia with lower urinary tract symptoms; M79.642 Pain in left hand; G47.33 Obstructive sleep apnea (adult) (pediatric); R73.03 Prediabetes; G56.00 Carpal tunnel syndrome, unspecified upper limb; E66.3 Overweight; Z68.30 Body mass index [BMI] 30.0-30.9, adult
CPT/HCPCS: 73130

== ENCOUNTER 2025-03-02 09:11 | Outpatient (AMB) | payer OTHER, SELFPAY ==
--- NOTE | 2025-03-02 09:17 | A.OFFPC_ITS ---
Vital Signs 03/02/25 09:19 Height 5 ft 7 in Weight 194 lb BMI 30.4 BP 138/78 Blood Pressure Location Lt brachial Position Sitting Pulse 78 Pulse Source Pulse Oximeter Temp 97.1 F Temp Source Temporal Artery Scan Pulse Oximetry (%) 98 Oxygen Delivery Method Room Air Intake Visit Reasons: gerd Intake Note: Patient is here to follow up on GERD. Stopper Grinder Required: No Trencher Driver: Not Required per policy Accompanied by: Self / Same As Patient Allergies No Known Allergies Allergy (Verified 03/02/25 09:18) Medication List - Last Reconciled 03/02/25 by Shahid Longoria MD tamsulosin (Flomax) 0.4 mg PO BEDTIME Tobacco use date assessed: 03/02/25 Dental Screening Dental Screen Date: 05/19/24 [facility] Medical History Screening PSA (prostate specific antigen) Blood pressure elevated without history of HTN Bilateral conjunctivitis Microscopic hematuria Slowing of urinary stream Urinary retention Urinary incontinence Bilateral hand pain Vision problem Bilateral hand numbness Hypercholesterolemia Impaired glucose tolerance Hiatal hernia GERD (gastroesophageal reflux disease) Pulmonary nodule Vitamin B12 deficiency Surgical History Cholelithiasis No pertinent past surgical history Family History Father Diabetes Acute CVA (cerebrovascular accident) Stroke Mother Diabetes Hypertension Maternal Grandfather Lung cancer Maternal Grandmother Lung cancer Brother Diabetes Social History Household Members: Spouse and Children Housing: House Alcohol intake: current Comment: once Q 3 months 1 glass of wine Patient Tobacco Use Status: Former Tobacco user Cigarettes Per Day: 10 Years Smoked: 10 yrs stopped 1993 e-Cigarette/Vaping Use: Never Used Second Hand Smoke Exposure: Yes service: No Current occupational status: employed Cognitive needs: No Hearing needs: No Vision needs: Yes Questionnaire Thrive Questionnaire Date Thrive assessed: 05/19/24 I am a: Patient What is your living situation today?: I have a steady place to live Within the past 12 months, did the food you bought not last and you didn't have the money to get more?: Never true Within the past 12 months, did you worry whether your food would run out before you got money to buy more?: Never true Do you have trouble paying for medicines?: No Do you have trouble getting transportation to medical appointments?: No Do you have trouble paying your heating and electricity bill?: No Do you have trouble taking care of your child, family member or friend?: No Do you have trouble with day-to-day activities such as bathing, preparing meals, shopping, managing finances, etc.?: No Are you currently unemployed and looking for a job?: No Are you interested in more education?: No Please select the resources that you would like help with: None Currently or been in a relationship where the following occur: I choose not to answer THRIVE Score: 0 AUDIT C Alcohol Use Questionnaire (AUDIT-C) 1. How often do you have a drink containing alcohol?: Never 2. How many drinks containing alcohol do you have on a typical day when you are drinking?: 1 or 2 3. How often do you have six or more drinks on one occasion?: Never Total Score: 0 LUCIANA-7 AMB Questionnaire LUCIANA-7 Date LUCIANA - 7 assessed: 05/19/24 Feeling nervous, anxious, or on edge: 0 = Not at all Not being able to stop or control worryin = Not at all Worrying too much about different things: 0 = Not at all Trouble relaxin = Not at all Being so restless that it is hard to sit still: 0 = Not at all Becoming easily annoyed or irritable: 0 = Not at all Feeling afraid as if something awful might happen: 0 = Not at all Total LUCIANA-7 score (0-4 normal; 5-9 mild; 10-14 moderate; 15-21 severe): 0 Source: Developed by Drs. Jordi Zamora, Birgit Jacobson, Ron Buitrago and colleagues, with an educational sid from [employer]. Physical exam (Primary Care) Vital Signs: Last Vital Signs Temp 97.1 F 03/02/25 09:19 Pulse 78 03/02/25 09:19 BP 138/78 03/02/25 09:19 Pulse Ox 98 03/02/25 09:19 Oxygen Delivery Method Room Air 03/02/25 09:19 BMI result Body Mass Index 30.4 Tobacco/Smoking Status: Tobacco use Status Tobacco use date assessed 03/02/25 03/02/25 09:22 Patient Tobacco Use Status Former Tobacco user 03/02/25 09:22 e-Cigarette/Vaping Use Never Used 03/02/25 09:22 Thrive Assessment: Date of Thrive Assessment Date Thrive assessed 05/19/24 03/02/25 09:22 Currently or been in a relationship where the following occur: I choose not to answer Const General: alert; No acute distress Eyes Conjunctivae: conjunctivae normal Resp Auscultation: clear to auscultation bilaterally Cardio Rate: regular rate Rhythm: regular rhythm GI Inspection: Yes normal to inspection Extrem General: Yes normal to inspection and No edema Coding Level of Care Code Est Pt Level 4 (52102) Complex EM visit Add On G2211 Diagnoses Hypercholesterolemia E78.00 Impaired glucose tolerance R73.02 GERD (gastroesophageal reflux disease) K21.9 BPH loc w urin obs/LUTS N40.1 Overweight (BMI 25.0-29.9) E66.3 Colon cancer screening Z12.11 Hand pain, left M79.642 Assessment & Plan Assessment & Plan (1) Hypercholesterolemia: Code(s): E78.00 - Pure hypercholesterolemia, unspecified Category: Medical Plan: Avoid fried foods, chicken skin, eggs, butter margarine, pastries and meat. Be it pork or beef they have a lot of cholesterol LDL goal of less than 130 and triglyceride of less than 150. Patient is at goal diet (2) Impaired glucose tolerance: Code(s): R73.02 - Impaired glucose tolerance (oral) Category: Medical Plan: Decrease the amount of carbohydrate intake, pasta, bread, rice and potatoes are all sugar and that is aside from all the sweet stuff, remember that fruits are good but they are Sweet also. (3) GERD (gastroesophageal reflux disease): Code(s): K21.9 - Gastro-esophageal reflux disease without esophagitis Category: Medical Plan: Avoid the foods that causes that usually spicy foods, tomato products, juices, coffee, soda and foods that your sensitive to. After eating do not lie down, allow 3-4 hours before in lie down. And keep the head of bed above 30 degrees to avoid the acid from going up. (4) BPH loc w urin obs/LUTS: Code(s): N40.1 - Benign prostatic hyperplasia with lower urinary tract symptoms Category: Medical Plan: Patient follows up with urology on tamsulosin (5) Overweight (BMI 25.0-29.9): Code(s): E66.3 - Overweight Category: Medical Plan: Diet and exercise (6) Colon cancer screening: Code(s): Z12.11 - Encounter for screening for malignant neoplasm of colon Category: Medical (7) Hand pain, left: Code(s): M79.642 - Pain in left hand Category: Medical Plan History of Present Illness The patient is a 64-year-old male presenting for a follow-up visit and preventative care. The patient has a history of gastroesophageal reflux disease (GERD) and hypercholesterolemia. He also has obstructive sleep apnea but has declined the use of CPAP therapy. The patient experienced a central retinal vein occlusion in the past and is currently managing benign prostatic hyperplasia (BPH) with tamsulosin. He is monitoring his prostate-specific antigen levels regularly. In July 2024, the patient visited an urgent care center for a viral syndrome. Recent blood work in February showed no anemia, normal electrolytes, and stable renal function with a creatinine level of 1.13 mg/dL. His fasting blood sugar was 106 mg/dL, and hemoglobin A1c was 6.2%, indicating prediabetes. The patient reports a 4-pound weight loss and has been advised to maintain a healthy diet and exercise regimen. He has a history of carpal tunnel syndrome, which has been causing pain and weakness in his hand for the past three to four weeks. An x-ray has been ordered to further evaluate the condition. Health Maintenance - Colonoscopy recommended as the gold standard for colon cancer screening. - Cologuard discussed as an alternative screening method for those without a family history of colon cancer. - Follow-up on blood work to monitor sugar levels and thyroid function in three months. - Discussion on the benefits of shingles vaccination. Social History - Exercise: Advised to maintain a healthy diet and exercise regimen. Review of Systems - Endocrine: Reports prediabetes with a hemoglobin A1c of 6.2%. - Musculoskeletal: Reports pain and weakness in the hand, associated with carpal tunnel syndrome. Physical Exam Results - Labs: No anemia, normal electrolytes, creatinine 1.13 mg/dL, fasting blood sugar 106 mg/dL, hemoglobin A1c 6.2%, LDL cholesterol 110 mg/dL, thyroid- stimulating hormone 4.22 mIU/L. Plan Patient was informed and verbally consented to the use of an ambient scribe for clinic note documentation during this visit. 1. Gastroesophageal Reflux Disease (Gerd) The patient is advised to continue dietary modifications to manage gastroesophageal reflux disease (GERD). 2. Hypercholesterolemia The patient's LDL cholesterol is at goal with a level of 110 mg/dL, and he is advised to maintain his current diet and exercise regimen. 3. Obstructive Sleep Apnea The patient has declined CPAP therapy for obstructive sleep apnea and is advised to consider alternative management strategies. 4. Benign Prostatic Hyperplasia (Bph) The patient is currently on tamsulosin for benign prostatic hyperplasia (BPH) and is advised to continue monitoring his prostate-specific antigen levels. 5. Prediabetes The patient is advised to follow a healthy diet and exercise regimen to manage prediabetes, with a follow-up blood test scheduled in three months. 6. Carpal Tunnel Syndrome An x-ray has been ordered to evaluate the patient's hand pain and weakness associated with carpal tunnel syndrome, and Voltaren gel has been prescribed for pain management. Discussion Notes During the visit, we discussed the management of the patient's gastroesophageal reflux disease with dietary modifications and the importance of maintaining cholesterol levels through diet and exercise. We reviewed the patient's prediabetes status and emphasized the need for lifestyle changes to prevent progression to diabetes. The patient was informed about the option of CPAP therapy for obstructive sleep apnea, which he declined, and we discussed alternative management strategies. We also addressed the patient's benign prostatic hyperplasia management with tamsulosin and the need for regular monitoring of prostate-specific antigen levels. An x-ray was ordered to evaluate the patient's hand pain related to carpal tunnel syndrome, and Voltaren gel was prescribed for pain relief. Patient Instructions - Continue dietary modifications to manage GERD. - Maintain current diet and exercise regimen to keep cholesterol levels at goal. - Consider alternative management strategies for obstructive sleep apnea if CPAP is not an option. - Continue tamsulosin and monitor prostate-specific antigen levels regularly. - Follow a healthy diet and exercise regimen to manage prediabetes, with a follow-up blood test in three months. - Use Voltaren gel as prescribed for hand pain and follow up with an x-ray. Orders: Orders Comprehensive Met. Panel Today R73.02 - Impaired glucose tolerance (oral) Hemoglobin A1c Today R73.02 - Impaired glucose tolerance (oral) Free T4 (Free Thyroxine) Today R73.02 - Impaired glucose tolerance (oral) Thyroid Stimulating Hormone 3 Months R73.02 - Impaired glucose tolerance (oral) Referrals Gastroenterology Referral Z12.11 - Encounter for screening for malignant neoplasm of colon Medications: New diclofenac sodium 1% (Voltaren Arthritis Pain) apply to single knee, ankle, foot;hand QID prn 4 grams topical QID 200 grams 2RF M79.642 - Pain in left hand
[2025-03-02 09:19] VITALS: BP 138/78; PULSE 78; TEMP 36.2; O2SAT 98; BMI 30.4
--- OUTSIDE RECORDS SUMMARY | 2025-03-02 10:01 | XMS_ITS | Clinical Summary ---
Author Organization [facility] Address [address] [place] [address] Care Team Providers Care Restaurant Greeter Name Role Phone Unavailable Primary Care Provider [...] - 2023-2 5 season) 2025 RSV Vaccine 50 years and old er and Patients (1 - 1-dose 75+ series) 2036 Hepatitis B Vaccines Aged Out No long er eligible based on patient's age to complete this topic Insurance [facility] [place] [employer] [place]
--- OUTSIDE RECORDS SUMMARY | 2025-03-02 10:01 | XMS_ITS | Patient Health Record ---
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 Driver Name Role Phone Shahid Longoria MD Primary [...] W/U Status Risk Notes Problem Esophageal reflux (839691463) Esophageal reflux (530.81) Active confirmed Problem Colon cancer screening (062814762) Colon cancer screening (V76.51) Active confirmed Plan Of Treatment Future Test Test Name Order Date COLONOSCOPY 11/09/2014 Insurance Providers Payer Name Payer Address Payer Phone Subscriber Number Group Number Insured Name Patient Relationship to Insured Coverage Start Date Coverage End Date [employer] [id number] [place] [phone] [id number] KALYANI WOODALL Self - patient is the insured Medical (General) History Medical History History ICD Code Denies [place],DM,CVA,Lung disease,renal dise ase
== END 2025-03-02 10:08 | disposition home or self-care (01) ==
LOC: HO.HMCH 09:11
PROVIDERS: PCP Internal Medicine; Visit Provider Internal Medicine
DX: E78.00 Pure hypercholesterolemia, unspecified (principal); R73.02 Impaired glucose tolerance (oral); K21.9 Gastro-esophageal reflux disease without esophagitis; N40.1 Benign prostatic hyperplasia with lower urinary tract symptoms; E66.3 Overweight; Z12.11 Encounter for screening for malignant neoplasm of colon; M79.642 Pain in left hand

== ENCOUNTER → 2025-03-02 10:19 | Outpatient (BNV) | payer OTHER, SELFPAY | PROVIDERS: PCP Internal Medicine; Visit Provider Radiology Diagnostic Radiology | DX: M19.042 Primary osteoarthritis, left hand (principal) | CPT/HCPCS: 73130 ==